=== PATIENT | female | born 1935 | race Caucasian/White ===

== ENCOUNTER 2021-05-27 18:01 | Inpatient (IN) | payer MEDICARE, SELFPAY ==
--- NOTE | ~2021-05-27 | XR_ITS ---
EXAMINATION: XR chest 1V portable Exam Date/Time: 05/27/2021 19:30 CDT CLINICAL HISTORY: Shortness of breath Comparison: None available. RESULT: Exam limited by significant rightward rotation. Lines, tubes, and devices: None. Lungs and pleura: Senescent changes.. Cardiomediastinal silhouette: Large hiatal hernia, otherwise unremarkable. Other: No acute osseous or upper abdominal finding. Severe diffuse osteopenia. IMPRESSION: No acute cardiopulmonary process Reviewed, dictated and finalized at location K.
[2021-05-27 18:09] VITALS: BP 107/81; PULSE 73; RESP 16; TEMP 36.4; O2SAT 100
--- NOTE | 2021-05-27 19:26 | ECG_ITS ---
Measurements Intervals [place] Rate: 56 P: 78 SD: 168 QRS: 7 QRSD: 87 T: 7 QT: 416 QTc: 404 Interpretive Statements SINUS BRADYCARDIA LOW QRS VOLTAGE IN PRECORDIAL LEADS [QRS DEFLECTION < 1.0 mV IN CHEST LEADS] ABNORMAL ECG NO PREVIOUS ECG AVAILABLE FOR COMPARISON Electronically Signed On 05-28-2021 15:44:20 CDT by Tim Rosa M.D.
--- NOTE | 2021-05-27 19:30 | ED.GENADULT ---
HPI - General Adult General Chief complaint: Recheck/Abnormal Lab/Rx Stated complaint: abnormal labs Time Seen by Provider: 05/27/21 19:15 Source: patient and family Mode of arrival: wheelchair Limitations: no limitations History of Present Illness HPI narrative: 85-year-old female presents to emergency room accompanied by her daughter. She comes in from assisted living facility. She has some outpatient labs which were drawn by her primary physician Dr. Radhames Molina who is part of [facility]. Laboratory results come back with a significant anemia with a hemoglobin 5.7 and hematocrit of 16.5. Also noted to have an elevation of her BUN to 47 with a creatinine 1.1. Patient denies any blood in her stool or any melanotic stools. Denies a history of GI bleed. She had no blood in her urine. She does have a small hemorrhoid which she states is Lately but no significant bleeding from that. She is been extremely weak lately. A couple times she has been so weak that she just have to let herself down to the floor she did not actually fall to the floor. Related Data Allergies Allergy/AdvReac Type Severity Reaction Status Date / Time codeine Allergy Unknown Unknown Verified 09/18/18 13:49 Review of Systems Review of Systems: CONSTITUTIONAL: Denies fever, chills, or sweats. Feeling weak and no energy EYES: Denies visual changes, redness, or discharge. ENT: Denies rhinorrhea, congestion, sore throat, or otalgia. CARDIOVASCULAR: Denies chest pain, palpitations, or edema. RESPIRATORY: Denies cough or dyspnea. GASTROINTESTINAL: Denies abdominal pain, nausea, vomiting, or diarrhea. GENITOURINARY: Denies dysuria or hematuria. SKIN: Denies rash or itching. MUSCULOSKELETAL: Denies back pain, joint pain, or myalgia. NEUROLOGIC: Denies headache, numbness, or weakness. PSYCHIATRIC: Denies anxiety or depression. [facility] Past Medical History Medical History (Updated 05/27/21 @ 21:18 by Ayaz Garay DO) Parkinson's disease Exam Narrative: APPEARANCE: Well appearing, no pain or distress, well-nourished. Patient is extremely pale Head normocephalic and atraumatic. EYES: PERRLA/EOMI, conjunctivae very clear. NOSE: Normal with no drainage EARS:TMS clear Caryn Wright, with good light reflex. THROAT: Pharynx clear, no exudate. NECK: Supple. No adenopathy, no masses. RESPIRATORY: Airway patent, respirations nonlabored. Clear to auscultation bilaterally, no rales, rhonchi, wheezing. CARDIOVASCULAR: Regular rate and rhythm without murmurs, rubs, or gallops. ABDOMINAL: Soft, nontender, nondistended, no hepatosplenomegaly Musculoskeletal: Moves all extremities. Strength/ROM intact, No edema, No calf tenderness. NEURO: Alert. Cranial nerves II through XII intact. Normal gait. Good coordination. Nonfocal examination. SKIN:: Warm, dry. Normal Color PSYCHIATRIC: Normal affect/mood, normal interaction Rectal: There was no stool in the rectal vault. There was no blood noted on the glove. Hemoccult negative on the mucus that I was able to get on the glove. Course Vital Signs Vital signs: Vital Signs Temperature 97.6 F 05/27/21 18:09 Pulse Rate 73 05/27/21 18:09 Respiratory Rate 16 05/27/21 18:09 Blood Pressure 107/81 05/27/21 18:09 Pulse Oximetry 100 05/27/21 18:09 Temperature 97.6 F 05/27/21 18:09 Pulse Rate 63 05/27/21 20:23 Respiratory Rate 20 05/27/21 20:23 Blood Pressure 116/45 L 05/27/21 20:23 Pulse Oximetry 100 05/27/21 20:23 Medical Decision Making MDM Narrative Medical decision making narrative: Patient noted to be severely anemic with hemoglobin 6.0. Rectal examination was nothing in the vault and the mucus was Hemoccult negative. Patient was transfused with blood in the emergency department. Vital Signs Vital Signs: Vital Signs Temperature 97.6 F 05/27/21 18:09 Pulse Rate 73 05/27/21 18:09 Respiratory Rate 16 05/27/21 18:09 Blood Pressure 107/81 05/27/21 18:09 Pulse Oximetry 10
[2021-05-27 20:21] VITALS: RESP 20
[2021-05-27 20:22] LABS: Basophils Percent Auto 0.5 % (0.2-1.2); Eosinophils Absolute Auto 0.3 K/mm3 (0-0.3); Immature Granulocyte Absolute 0.05 K/mm3 (0.00-0.031); Immature Granulocyte Percent A 0.6 % (0-0.5); Lymphocytes Absolute Auto 1.48 K/mm3 (0.9-3.2); Lymphocytes Percent Auto 17.6 % (18.3-44.2); Mean Corpuscular HGB Conc 31.6 g/dl (32-36); Mean Corpuscular Volume 104.4 fl (80-100); Mean Platelet Volume 10.5 fl (7.4-10.4); Monocytes Absolute Auto 0.9 K/mm3 (0.1-0.6); Monocytes Percent Auto 10.4 % (2.6-8.5); Neutrophils Absolute Auto 5.7 K/mm3 (1.3-6.7); Neutrophils Percent Auto 67.9 % (45.5-73.1); Platelet Count Result 258 k/mm3 (150-375); Red Blood Count 1.82 M/mm3 (4.2-5.4); Red Cell Distribution Width 15.1 % (11.5-14.5); White Blood Count 8.4 K/mm3 (4.5-10.0)
[2021-05-27 20:23] VITALS: BP 116/45; PULSE 63; RESP 20; O2SAT 100
[2021-05-27 20:31] LABS: Alanine Aminotransferase 6 U/L (4-35); Albumin Level 3.4 g/dL (3.5-5.1); Alkaline Phosphatase 39 U/L (38-126); Anion Gap 5 mmol/L (8-16); Aspartate Amino Transferase 28 U/L (14-36); Bilirubin,Total 0.4 mg/dL (0.2-1.3); Blood Urea Nitrogen 42 mg/dL (7-17); Calcium 9.1 mg/dL (8.4-10.2); Carbon Dioxide 25 mmol/L (22-30); Chloride 106 mmol/L (98-107); Estimated Glomerular Filt Rate 53; Glucose 104 mg/dL (65-110); Potassium 4.1 mmol/L (3.4-5.0); Sodium 136 mmol/L (137-145)
[2021-05-27 20:34] LABS: INR 1.3; Prothrombin Time 15.5 Seconds (11.1-14.7)
[2021-05-27 20:35] LABS: Partial Thromboplastin Time 25.3 SECONDS (22.3-36.8)
--- NOTE | 2021-05-27 21:50 | PC.NURSE ---
Unable to parts picker PRBC from blood bank. Blood type confirmation needed before it could be released.
[2021-05-27 21:58] VITALS: BP 127/48; PULSE 62; RESP 17; O2SAT 99
[2021-05-27] MEDS: SODIUM CHLORIDE 0.9% IV 250 ML 30 ML IV CONT (22:11)
[2021-05-27 22:34] VITALS: BP 125/45; PULSE 60; RESP 18; O2SAT 98
--- NOTE | 2021-05-27 22:36 | PC.NURSE ---
Consent for Blood Transfusion obtained and placed in patients chart. Copy of LG PW placed with patients chart.
[2021-05-27 23:27] VITALS: BMI 24.2
[2021-05-27 23:36] VITALS: BP 104/47; PULSE 59; RESP 16; TEMP 36.9; O2SAT 95
--- NOTE | 2021-05-27 23:38 | ADMGEN ---
This patient, Inge Estevez, was admitted to 3 Med Surg Room 312-01 at 2315. Patient/family oriented to hospital policies and general routines including ID bracelet, bed and alarms, visiting hours, pain management, procedures, bathroom and other care routines, personal items, smoking policy, room service/diet, and visiting hours. Information on how to activate the Rapid Response Team has been discussed. Patient/Family are encouraged to report perceived risks to care and to ask questions if they do not understand what they are told or what they should do.
[2021-05-28] VITALS (11 sets, daily range): BP systolic 104–122; BP diastolic 44–77; PULSE 55–71; RESP 16–18; TEMP 36.1–36.9; O2SAT 96–100
--- NOTE | 2021-05-28 00:35 | PM.IMHP ---
H&P: HPI History of Present Illness Date/Time: 05/28/21 00:35 Chief Complaint: Low hemoglobin. Narrative: This is an 85-year-old female with past medical history significant for Parkinson's disease, atrial fibrillation, hypertension, gastroesophageal reflux disease. Patient lives at assisted living facility. She is brought in for evaluation after lab work at her primary care physician's office showed a hemoglobin 6 hematocrit of 19 MCV 104. Patient denies any coffee-ground emesis or melena or bright red blood per rectum or hematemesis. She has been in her usual state of health. Patient denies any nausea vomiting abdominal pain, weight loss, no poor appetite, no early satiety, no changes in his to character. Decision has been made to admit the patient for further evaluation management and treatment. Review of Systems Review of Systems: Low hemoglobin, abnormal lab results. Constitutional: Constitutional: Denies chills, Reports fatigue, Denies fever(s), Reports lethargy, Denies malaise, Denies night sweats and Denies weakness Eyes: Eyes: Denies change in vision ENT: Denies dysphagia and Denies odynophagia Cardiovascular: Cardiovascular: Denies chest pain, Denies pedal edema, Denies leg edema, Denies radiating jaw, neck or arm pain and Denies palpitations Respiratory: Respiratory: Denies cough and Denies excessive phlegm production Gastrointestinal: Gastrointestinal: Denies abdominal pain, Denies melena, Denies hematochezia, Denies change in bowel habits, Denies coffee ground emesis, Denies dyspepsia, Denies heartburn, Denies nausea and Denies vomiting Genitourinary: Genitourinary: Denies dysuria Musculoskeletal: Musculoskeletal: Denies back pain, Denies arthralgias, Denies joint swelling and Denies muscle weakness Integumentary/Breasts: Skin/Breast: Denies rash Neurologic: Denies focal weakness and Denies Sensory deficit (Neuro) Psychiatric: Psychiatric: Reports no additional psychiatric complaints and Reports as per HPI Endocrine: Endocrine: Denies cold intolerance, Denies heat intolerance, Denies polyphagia, Denies polydipsia and Denies palpitations Hematologic/Lymphatic: Hematologic/Lymphatic: Reports no additional hematologic/lymphatic complaints and Reports as per HPI Allergic/Immunologic: Allergic/Immunologic: Reports no additional allergic/immunologic complaints and Reports as per HPI [facility] Past Medical History Medical History (Updated 05/27/21 @ 21:18 by Ayaz Garay DO) Parkinson's disease Family History Family History (Updated 05/27/21 @ 23:44 by Carole Helm RN) Mother CAD (coronary artery disease) Sibling Diabetes mellitus Social History Social History Smoking status: Never smoker Alcohol intake: former Substance use: never Spiritual care concerns: No Meds Home Medications and Allergies Home Medications Medication Instructions Recorded Confirmed Type carbidopa-levodopa 2 tablet PO QID 05/27/21 05/27/21 History mirabegron [Myrbetriq] 25 mg PO DAILY 05/27/21 05/28/21 History nadolol 80 mg PO DAILY 05/28/21 05/28/21 History nitrofurantoin macrocrystal 50 mg PO DAILY 05/28/21 05/28/21 History nystatin [Nystop] 1 applic TOPICAL TID 05/28/21 05/28/21 History omeprazole 20 mg PO DAILY 05/28/21 05/28/21 History triamterene-hydrochlorothiazid 1 cap PO DAILY 05/28/21 05/28/21 History Allergies Allergy/AdvReac Type Severity Reaction Status Date / Time codeine Allergy Unknown Unknown Verified 05/27/21 22:43 Vital Signs Vital Signs - 24 hr 05/27/21 18:09 05/27/21 20:21 05/27/21 20:23 Temperature 97.6 F Pulse Rate 73 63 Respiratory Rate 16 20 20 Blood Pressure 107/81 116/45 L Pulse Oximetry 100 100 05/27/21 21:58 05/27/21 22:34 Temperature Pulse Rate 62 60 Respiratory Rate 17 18 Blood Pressure 127/48 L 125/45 L Pulse Oximetry 99 98 Exam Narrative: Patient is laying in a stretcher. Const:
[2021-05-28] MEDS: SODIUM CHLORIDE 0.9% IV 250 ML 30 ML (00:55)
[2021-05-28 04:21] LABS: Appearance Urine Cloudy (Clear); Bilirubin Urine Negative (Negative); Blood Urine Negative (Negative); Color Urine Yellow (Yellow); Glucose Urine UA Negative (Negative); Ketones Urine Negative (Negative); Leukocyte Esterase Ur Trace LEU/UL (Negative); Nitrate Urine Negative (Negative); Protein Urine Negative (Negative); Urobilinogen Urine 0.2 mg/dL (<2.0); pH Urine 5.5 (5.0-9.0)
[2021-05-28 04:27] LABS: Bacteria Urine 1+ /hpf; Mucus Urine Rare /lpf; RBC Urine 0-2 /hpf (0-2); Squamous Epithelial Cell Urine Rare /hpf (Few)
[2021-05-28 04:31] LABS: Add Urine Microscopic? YES
[2021-05-28] MEDS: TUBING, BLOOD PLUM PUMP TUBING 1 EACH XX (04:46)
--- NOTE | 2021-05-28 07:42 | PM.IMPN ---
Progress Note: A&P Assessment and Plan (1) Anemia: Qualifiers: Anemia type: unspecified type Qualified Code(s): D64.9 - Anemia, unspecified Code(s): D64.9 - Anemia, unspecified Status: Acute Assessment and Plan: Guaiac negative, repeat. GI consult Transfuse as needed admitted with a hemoglobin of 6.0, she was given 1 unit of blood, repeat CBC showed 7.6 hemoglobin with a 23.2 hematocrit. vital signs are currently stable, she does become dyspneic with any amount of exertion or activity. She is mostly bed ridden, but with meals and repositioning does appear to be huffing and puffing per family report. GI physician Dr. Stein saw the patient this morning, occult stool ordered as well as other blood work. GI physician advised to keep the hemoglobin greater than 9. Ordered another unit of RBCs this afternoon. Repeating CBC and CMP in the morning. Added iron panel and folic study in the morning. GI not recommending any invasive diagnostic procedures or studies or colonoscopy or EGD at this time. (2) Generalized weakness: Code(s): R53.1 - Weakness Status: Acute Assessment and Plan: Likely secondary to low hemoglobin and chronic deconditioning Ordered dietary supplements Supportive care PT and OT has been ordered. Patient is on a heart healthy diet. Ordered 20 mEq PO of potassium for potassium of 3.5. Checking iron panel and folic level Need to treat iron if low, with Venofer and/or p.o. iron supplements daily (3) Parkinson's disease: Code(s): G20 - Parkinson's disease Status: Acute Assessment and Plan: Continue PT/OT Continue Sinemet and other home meds On room air Continue to monitor (4) Urinary retention: Code(s): R33.9 - Retention of urine, unspecified Status: Acute Assessment and Plan: Acute new this shift, 05/28/21 She did not come from facility with a Dick catheter, but does take oxybutynin daily/macrobid daily and has chronic UTIs per daughter report. Her PCP treats her chronic UTIs and her chronic urinary retention. She is having difficulty with urinary retention, had a straight cath at admission to get the UA. urinalysis showed cloudy, trace leukocyte esterase, WBC 4-6, 1+ bacteria; urine culture is pending currently needing a bladder scan for possible urinary retention. Bladder scan ordered p.r.n. Dick to be placed if retaining 300 mL or more of urine. strict I/Os. WBC 8.0, no fevers or chills Subjective Date/time seen: 05/28/21 07:42 Patient was admitted with a hemoglobin of 6.0, she was given 1 unit of blood, and a repeat CBC showed 7.6 hemoglobin with a 23.2 hematocrit. While her vital signs are currently stable, she does become dyspneic with any amount of exertion or activity. She is mostly bed ridden, but with meals and repositioning does appear to be huffing and puffing per family report. She is having difficulty with urinary retention, had a straight cath at admission; urinalysis showed cloudy, trace leukocyte esterase, WBC 4-6, 1+ bacteria; urine culture is pending, and is currently needing a bladder scan for possible urinary retention. Bladder scan ordered p.r.n. and Dick to be placed if retaining 300 mL or more of urine. PT and OT has been ordered. Patient is on a heart healthy diet. Ordered 20 mEq PO of potassium for potassium of 3.5. GI physician Dr. Stein saw the patient this morning, occult stool ordered as well as other blood work. GI physician advised to keep the hemoglobin greater than 9. Ordered another unit of RBCs this afternoon. Repeating CBC and CMP in the morning. Added iron panel and folic study in the morning. Not recommending any invasive diagnostic procedures or studies or colonoscopy or EGD at this time. Her daughter is at bedside and I spoke with her at length. Review of Systems Review of Systems: All systems reviewed & are unremarkable except as noted in HPI and below Constitu
[2021-05-28] MEDS: nadoloL 20 MG TABLET 80 MG PO (08:06)
[2021-05-28] MEDS: NITROFURANTOIN MACROCRYSTALS 50 MG CAP PO (08:06)
[2021-05-28] MEDS: PANTOPRAZOLE 40 MG TABLET PO (08:06)
[2021-05-28] MEDS: CARBIDOPA/LEVODOPA 25/100 MG TABLET 2 TABLET PO ×4 (08:07→20:28)
[2021-05-28] MEDS: MIRABEGRON 25 MG ER TABLET PO (08:07)
[2021-05-28 08:34] LABS: Hematocrit 23.2 % (37.0-47.0); Hemoglobin 7.6 g/dL (12.0-15.0); Mean Corpuscular HGB Conc 32.8 g/dl (32-36); Mean Corpuscular Hemoglobin 32.3 pg (26-34); Mean Corpuscular Volume 98.7 fl (80-100); Mean Platelet Volume 10.3 fl (7.4-10.4); Platelet Count Result 251 k/mm3 (150-375); Red Blood Count 2.35 M/mm3 (4.2-5.4); Red Cell Distribution Width 16.4 % (11.5-14.5)
--- NOTE | 2021-05-28 08:43 | WPDGICN ---
Assessment and Plan Assessment and plan (1) Anemia: Qualifiers: Anemia type: unspecified type Qualified Code(s): D64.9 - Anemia, unspecified Code(s): D64.9 - Anemia, unspecified Status: Acute Assessment and Plan: Patient found to have significant macrocytic anemia in the emergency room. No history of GI bleeding is encountered. No specific abdominal complaints are described. Stools confirmed to be Hemoccult negative in the emergency room. Plan is to initially evaluate patient with folate B12 levels. LFTs were normal. Stool Hemoccult will be repeated to be thorough. Invasive GI testing would be stressful for this elderly, frail patient. At this time I would elect to transfuse her and only pursue invasive testing should her general condition improve adequately to tolerate this. We will follow hemoglobin with you. Folate and B12 level should be obtained.( these results may be tainted by recent transfusion). Review of old records revealed baseline hemoglobin of approximately 9, suggesting that patient may have a component of chronic anemia. We may wish to obtain hematology evaluation as well. (2) Parkinson's disease: Code(s): G20 - Parkinson's disease Status: Acute GI Consult Note Consult date/time: 05/28/21 08:43 HPI: Inge Estevez is a 85 year old female Seen in evaluation at the request of the hospitalist service. Patient is very frail. Currently resident of a shelter. Suffers with Parkinson's disease. She has been treated for atrial fibrillation hypertension and GE reflux. Patient apparently had routine labs performed which revealed her to have a low hemoglobin. Patient denies any obvious bleeding. She has had no bruising. She denies abdominal pain. Her appetite has been satisfactory. She does report weakness in general. Family history is noncontributory. Patient presented to the emergency room was admitted for blood transfusion went anemia was identified. In the emergency room stool was described as being Hemoccult negative in brown in appearance. She is not on anticoagulation. Review of Systems Review of Systems: All systems reviewed & are unremarkable except as noted in HPI and below PMFSH Past Medical History Medical History (Updated 05/27/21 @ 21:18 by Ayaz Garay DO) Parkinson's disease Family History Family History (Updated 05/27/21 @ 23:44 by Carole Helm RN) Mother CAD (coronary artery disease) Sibling Diabetes mellitus Social History Social History Smoking status: Never smoker Alcohol intake: former Substance use: never Spiritual care concerns: No Meds Home Medications and Allergies Home Medications Medication Instructions Recorded Confirmed Type carbidopa-levodopa 2 tablet PO QID 05/27/21 05/27/21 History mirabegron [Myrbetriq] 25 mg PO DAILY 05/27/21 05/28/21 History nadolol 80 mg PO DAILY 05/28/21 05/28/21 History nitrofurantoin macrocrystal 50 mg PO DAILY 05/28/21 05/28/21 History nystatin [Nystop] 1 applic TOPICAL TID 05/28/21 05/28/21 History omeprazole 20 mg PO DAILY 05/28/21 05/28/21 History triamterene-hydrochlorothiazid 1 cap PO DAILY 05/28/21 05/28/21 History Allergies Allergy/AdvReac Type Severity Reaction Status Date / Time codeine Allergy Unknown Unknown Verified 05/27/21 22:43 Vital Signs Vital Signs - 24 hr 05/27/21 18:09 05/27/21 20:21 05/27/21 20:23 Temperature 97.6 F Pulse Rate 73 63 Respiratory Rate 16 20 20 Blood Pressure 107/81 116/45 L Pulse Oximetry 100 100 05/27/21 21:58 05/27/21 22:34 05/28/21 00:52 Temperature 98.5 F Pulse Rate 62 60 61 Respiratory Rate 17 18 16 Blood Pressure 127/48 L 125/45 L 122/44 L Pulse Oximetry 99 98 97 05/28/21 01:10 05/28/21 02:10 05/28/21 03:10 Temperature 98.3 F 97.3 F L 97 F L Pulse Rate 55 L 57 L 56 L Respiratory Rate 16 16 18 Blood Pressure 112/47 L 115/49
[2021-05-28 08:45] LABS: Alanine Aminotransferase 7 U/L (4-35); Alkaline Phosphatase 35 U/L (38-126); Anion Gap 4 mmol/L (8-16); Aspartate Amino Transferase 23 U/L (14-36); Bilirubin,Total 0.4 mg/dL (0.2-1.3); Blood Urea Nitrogen 35 mg/dL (7-17); Calcium 8.4 mg/dL (8.4-10.2); Carbon Dioxide 25 mmol/L (22-30); Chloride 109 mmol/L (98-107); Estimated CRCL calculation 34 ml/min; Estimated Glomerular Filt Rate 60; Glucose 91 mg/dL (65-110); Phosphorus 3.9 mg/dL (2.5-4.5); Potassium 3.5 mmol/L (3.4-5.0); Sodium 138 mmol/L (137-145)
[2021-05-28 09:01] LABS: Immature Reticulocyte Fraction 29.3 % (3.0-15.9); Reticulocyte Hemoglobin Conten 36.4 pg (28.2-35.7); Reticulocyte Percent 4.58 % (0.7-4.3); Reticulocytes Absolute 0.11 B/L (32.2-175.7)
[2021-05-28 11:06] LABS: Folic Acid > 20.0 ng/mL (2.76->20)
[2021-05-28] MEDS: POTASSIUM CHLORIDE 20 MEQ TABLET.ER PO (13:38)
[2021-05-29] VITALS (8 sets, daily range): BP systolic 98–137; BP diastolic 44–61; PULSE 56–68; RESP 16; TEMP 35.7–36.8; O2SAT 97–98; BMI 24.2
[2021-05-29] MEDS: SODIUM CHLORIDE 0.9% IV 250 ML 30 ML IV CONT (00:06)
[2021-05-29] MEDS: TUBING, BLOOD PLUM PUMP TUBING 1 EACH XX (00:06)
[2021-05-29 05:57] LABS: Basophils Percent Auto 0.6 % (0.2-1.2); Eosinophils Absolute Auto 0.2 K/mm3 (0-0.3); Eosinophils Percent Auto 3.1 % (0-4.4); Hematocrit 25.9 % (37.0-47.0); Hemoglobin 8.3 g/dL (12.0-15.0); Immature Granulocyte Absolute 0.03 K/mm3 (0.00-0.031); Immature Granulocyte Percent A 0.4 % (0-0.5); Lymphocytes Absolute Auto 1.25 K/mm3 (0.9-3.2); Lymphocytes Percent Auto 18.2 % (18.3-44.2); Mean Corpuscular Hemoglobin 31.7 pg (26-34); Mean Corpuscular Volume 98.9 fl (80-100); Mean Platelet Volume 10.2 fl (7.4-10.4); Monocytes Absolute Auto 0.8 K/mm3 (0.1-0.6); Monocytes Percent Auto 10.9 % (2.6-8.5); Neutrophils Absolute Auto 4.6 K/mm3 (1.3-6.7); Neutrophils Percent Auto 66.8 % (45.5-73.1); Platelet Count Result 220 k/mm3 (150-375); Red Blood Count 2.62 M/mm3 (4.2-5.4); Red Cell Distribution Width 16.9 % (11.5-14.5); White Blood Count 6.9 K/mm3 (4.5-10.0)
[2021-05-29 06:08] LABS: Albumin Level 2.9 g/dL (3.5-5.1); Alkaline Phosphatase 42 U/L (38-126); Anion Gap 3 mmol/L (8-16); Aspartate Amino Transferase 21 U/L (14-36); Bilirubin,Total 0.4 mg/dL (0.2-1.3); Blood Urea Nitrogen 25 mg/dL (7-17); Calcium 7.8 mg/dL (8.4-10.2); Carbon Dioxide 24 mmol/L (22-30); Chloride 109 mmol/L (98-107); Estimated CRCL calculation 34 ml/min; Estimated Glomerular Filt Rate 60; Glucose 92 mg/dL (65-110); Potassium 3.7 mmol/L (3.4-5.0); Sodium 136 mmol/L (137-145)
[2021-05-29 06:10] LABS: Alanine Aminotransferase < 6 U/L (4-35)
[2021-05-29 06:16] LABS: NT Pro B Type Natriuretic Pept 2440 pg/mL (5-100)
[2021-05-29 06:27] LABS: Iron 31 ug/dL (37-170)
[2021-05-29 06:36] LABS: Percent Iron Saturation 16 % (20-50)
[2021-05-29 07:14] LABS: Folic Acid > 20.0 ng/mL (2.76->20)
[2021-05-29] MEDS: CARBIDOPA/LEVODOPA 25/100 MG TABLET 2 TABLET PO ×4 (09:13→20:27)
[2021-05-29] MEDS: PANTOPRAZOLE 40 MG TABLET PO (09:14)
[2021-05-29] MEDS: NITROFURANTOIN MACROCRYSTALS 50 MG CAP PO (09:14)
[2021-05-29] MEDS: nadoloL 20 MG TABLET 80 MG PO (09:17)
--- NOTE | 2021-05-29 11:15 | PM.IMPN ---
Progress Note: A&P Assessment and Plan (1) Anemia: Qualifiers: Anemia type: unspecified type Qualified Code(s): D64.9 - Anemia, unspecified Code(s): D64.9 - Anemia, unspecified Status: Acute Assessment and Plan: Found to have hemoglobin of 5.7 and hematocrit of 16.5 on outpatient labs, therefore she was sent to the ED There is no evidence of GI bleeding. Hemoccult negative in ED. GI was consulted for further evaluation and has recommended to hold on invasive testing at this time as long as hemoglobin remains stable She received 2 units PRBC on 05/28/2021. Hemoglobin improved to 8.3 following transfusion. Will recheck this afternoon to ensure remaining stable and continue to monitor closely Iron panel which appears consistent with anemia of chronic disease. B12 and folate are within normal limits Documented that hemoglobin baseline is 9.0 Repeat stool occult blood test is pending, awaiting stool sample Reticulocyte count is low, concerning for bone marrow suppression. Consult to hematology. Appreciate further recommendations. (2) Generalized weakness: Code(s): R53.1 - Weakness Status: Acute Assessment and Plan: Likely secondary to anemia and chronic deconditioning Appreciate PT/OT eval Continue dietary supplements Continue with evaluation for anemia as above (3) Urinary retention: Code(s): R33.9 - Retention of urine, unspecified Status: Acute Assessment and Plan: New onset. Dick catheter initiated on 05/28/2021 Patient noted to have no urine output throughout the day on 05/28/2021 therefore Dick catheter was initiated Hold oxybutynin Plan for voiding trial in the next 1-2 days UA collected on 05/28 with trace leuk esterase. Urine culture is pending, though no signs/symptoms to suggest acute infection therefore will hold antibiotics while awaiting culture (4) Parkinson's disease: Code(s): G20 - Parkinson's disease Status: Acute Assessment and Plan: No acute issues Continue carbidopa-levodopa Subjective Date/time seen: 05/29/21 11:15 Interval history: Date of service: 05/29/2021 Inge Estevez is an 85-year-old female with a history of Parkinson's disease and urinary incontinence who is seen in follow-up for anemia. The patient tells me that several days ago she slipped while trying to get into her bed and fell onto her bottom. She said that she has been feeling persistently weaker. This prompted staff at her nursing facility to draw labs and she was found to have a low hemoglobin. She cannot recall what this was. She denies blood in her stool, stating her stools are the same brown color. She does have a hemorrhoid that bothers her every so often, she states she last notices about 2 weeks ago but has not noticed any bleeding when she has bowel movements or wipes. Denies hematemesis. No hemoptysis. No hematuria. She denies shortness of breath, palpitations, dizziness, or lightheadedness. Denies cough or chest pain. No dysuria. She states her last bowel movement was several days ago, however her states that she was informed she had a bowel movement yesterday. No bowel movement is documented. She does have some gas discomfort in her abdomen. No nausea or vomiting. She is tolerating her diet. She states her Dick catheter was placed in the ED because she was not able to urinate, though RN tells me this was initiated last night on the floor as she did not urinate for the entire shift. The patient was straight cathed in the ED and suspect this is what she was referring to. She states that she occasionally has issues with not being able to urinate when she needs to, but if she takes her time she can typically go. She states she gets around at her nursing facility using a wheelchair. She is able to transfer herself from the bed to the commode to the wheelchair. She tells me that she gets physical therapy 3 times a wee
[2021-05-29] MEDS: DOCUSATE SODIUM 100 MG CAPSULE PO ×2 (12:04→20:27)
[2021-05-29 12:21] LABS: Hematocrit 26.5 % (37.0-47.0)
--- NOTE | 2021-05-29 13:46 | PCCCNOTE ---
On 05/29/21, the student, [Kavya Henriquez], provided care and completed [facility] documentation on this patient. I have reviewed the student's documentation and agree with the findings.
[2021-05-29] MEDS: polyethylene glycoL 3350 17 GM POWD.PACK PO (13:47)
--- NOTE | 2021-05-29 14:33 | WPDGIPROGNO ---
Progress Note: A&P Assessment and Plan (1) Anemia: Qualifiers: Anemia type: unspecified type Qualified Code(s): D64.9 - Anemia, unspecified Code(s): D64.9 - Anemia, unspecified Status: Acute Assessment and Plan: anemia stable. Improved after transfusion. No obvious signs of GI blood loss. Patient in poor general health. Invasive testing such as endoscopy not indicated given heme-negative stool on high risk with General cor morbidities. Agree that it may be beneficial to get a hematology evaluation. Patient appears to have a relatively low hemoglobin baseline. (2) Parkinson's disease: Code(s): G20 - Parkinson's disease Status: Acute Subjective Date/time seen: 05/29/21 14:33 Patient alert but very frail. No signs of GI bleeding noted. Review of Systems Review of Systems: All systems reviewed & are unremarkable except as noted in HPI and below Exam Narrative: At abdomen is soft nontender with no organomegaly. Stool Hemoccult negative in the ER. Hemoglobin stable at this point Objective Data Vital Signs Vital Signs: Vital Signs - 24 hr 05/28/21 22:00 05/28/21 23:18 05/28/21 23:36 Temperature 98.0 F 98.3 F 98.3 F Pulse Rate 71 59 L 59 L Respiratory Rate 16 16 16 Blood Pressure 110/44 L 104/44 L 104/47 L Pulse Oximetry 97 96 96 05/29/21 00:36 05/29/21 01:44 05/29/21 05:52 Temperature 98.2 F 98.2 F 97.0 F L Pulse Rate 63 56 L 63 Respiratory Rate 16 16 16 Blood Pressure 108/48 L 104/44 L 104/44 L Pulse Oximetry 98 98 98 05/29/21 08:27 05/29/21 08:29 05/29/21 09:17 Temperature Pulse Rate 68 68 Respiratory Rate Blood Pressure 137/61 Pulse Oximetry 98 98 05/29/21 13:44 Temperature 96.2 F L Pulse Rate 68 Respiratory Rate 16 Blood Pressure 102/48 L Pulse Oximetry 98 Intake/Output Intake/Output: Intake & Output 05/26/21 05/27/21 05/28/21 05/29/21 23:59 23:59 23:59 23:59 Intake Total 1887 1140 Output Total 0 575 700 Balance 0 1312 440 Meds/Results Medications: Active Medications Generic Name Dose Route Start Last Admin Trade Name Ariesq PRN Reason Stop Dose Admin Carbidopa/Levodopa 2 tablet 05/28/21 08:00 05/29/21 12:04 Carbidopa/Levodopa 25/100 Mg Tablet PO 2 tablet WMHS NANI Administration Docusate Sodium 100 mg 05/29/21 11:13 05/29/21 12:04 Docusate Sodium 100 Mg Capsule PO 100 mg Q12HR NANI Administration Nadolol 80 mg 05/28/21 09:00 05/29/21 09:17 Nadolol 20 Mg Tablet PO 80 mg DAILY NANI Administration Nitrofurantoin Macrocrystals 50 mg 05/28/21 08:00 05/29/21 09:14 Nitrofurantoin Macrocrystals 50 Mg Cap PO 50 mg DAILY@0800 NANI Administration Oxybutynin Chloride 5 mg 05/29/21 09:00 05/29/21 09:14 Oxybutynin Chloride Xl 5 Mg Tab.Er.24 PO 5 mg DAILY NANI Administration Pantoprazole Sodium 40 mg 05/28/21 09:00 05/29/21 09:14 Pantoprazole 40 Mg Tablet PO 40 mg QAM NANI Administration Polyethylene Glycol 17 gm 05/29/21 11:13 05/29/21 13:47 Polyethylene Glycol 3350 17 Gm Powd.Pack PO 17 gm QAM PRN Administration Constipation Tolnaftate 1 applic 05/28/21 11:51 Tolnaftate 1% Powder 45 Gm Btl TOPICAL Q12HR PRN Rash Radiology Results: ITS Impressions Chest X-Ray 05/27/21 19:48 IMPRESSION: No acute cardiopulmonary process Labs Labs: Laboratory Results - last 24 hr 05/27/21 05/29/21 05/29/21 20:11 05:43 05:43 WBC 6.9 RBC 2.62 L Hgb 8.3 L Hct 25.9 L MCV 98.9 MCH 31.7 MCHC 32.0 RDW 16.9 H Plt Count 220 MPV 10.2 Immature Gran % (Auto) 0.4 Neut % (Auto) 66.8 Lymph % (Auto) 18.2 L Weston % (Auto) 10.9 H Eos % (Auto) 3.1 Baso % (Auto) 0.6 Lymph # (Auto) 1.25 Weston # (Auto) 0.8 H Eos # (Auto) 0.2 Baso # (Auto) 0.0 Abs Immat Gran (auto) 0.03 Absolute Neuts (auto) 4.6 Absolute Nucleated RBC 0.0 Nucleated RBC % 0.0 Sod[place]
[2021-05-29] MEDS: ACETAMINOPHEN 325 MG TABLET 650 MG PO (18:42)
[2021-05-29 19:22] LABS: IFOB Positive Control Positive; Immunochemical Fecal Occult Bl Negative (N)
[2021-05-30 05:59] VITALS: BP 120/57; PULSE 58; RESP 16; TEMP 36.1; O2SAT 96
[2021-05-30 06:21] LABS: Anion Gap 3 mmol/L (8-16); Blood Urea Nitrogen 20 mg/dL (7-17); Calcium 7.7 mg/dL (8.4-10.2); Carbon Dioxide 25 mmol/L (22-30); Chloride 108 mmol/L (98-107); Estimated CRCL calculation 34 ml/min; Estimated Glomerular Filt Rate 60; Glucose 87 mg/dL (65-110); Potassium 4.2 mmol/L (3.4-5.0); Sodium 136 mmol/L (137-145)
[2021-05-30 07:30] LABS: Hematocrit 26.1 % (37.0-47.0); Hemoglobin 8.4 g/dL (12.0-15.0); Mean Corpuscular HGB Conc 32.2 g/dl (32-36); Mean Corpuscular Hemoglobin 31.9 pg (26-34); Mean Corpuscular Volume 99.2 fl (80-100); Mean Platelet Volume 10.4 fl (7.4-10.4); Platelet Count Result 221 k/mm3 (150-375); Red Blood Count 2.63 M/mm3 (4.2-5.4); Red Cell Distribution Width 17.2 % (11.5-14.5); White Blood Count 6.4 K/mm3 (4.5-10.0)
[2021-05-30 08:37] VITALS: PULSE 60
[2021-05-30] MEDS: CARBIDOPA/LEVODOPA 25/100 MG TABLET 2 TABLET PO ×4 (08:37→20:45)
[2021-05-30] MEDS: nadoloL 20 MG TABLET 80 MG PO (08:37)
[2021-05-30] MEDS: DOCUSATE SODIUM 100 MG CAPSULE PO ×2 (08:38→20:45)
[2021-05-30] MEDS: PANTOPRAZOLE 40 MG TABLET PO (08:38)
[2021-05-30] MEDS: NITROFURANTOIN MACROCRYSTALS 50 MG CAP PO (08:38)
--- NOTE | 2021-05-30 09:38 | WPDGIPROGNO ---
Progress Note: A&P Assessment and Plan (1) Anemia: Qualifiers: Anemia type: unspecified type Qualified Code(s): D64.9 - Anemia, unspecified Code(s): D64.9 - Anemia, unspecified Status: Acute Assessment and Plan: Patient with stable anemia. No obvious signs of GI bleeding. Stool Hemoccult negative. Patient has underlying medical problems including Parkinson's disease. His very weak and frail and not a good candidate for screening a colonoscopy. Agree with considering Hematology evaluation. No additional GI workup anticipated at this time. (2) Parkinson's disease: Code(s): G20 - Parkinson's disease Status: Acute Subjective Date/time seen: 05/30/21 09:38 Pain patient remains comfortable at rest. No signs of GI bleeding. Stool Hemoccult negative. Hemoglobin stable. She has received transfusion since admission the hospital. Review of Systems Review of Systems: All systems reviewed & are unremarkable except as noted in HPI and below Exam Narrative: Physical exam reveals patient be alert comfortable at rest. Vital signs stable. She is very weak and frail in appearance. Lungs are clear. Abdomen is soft nontender. Objective Data Vital Signs Vital Signs: Vital Signs - 24 hr 05/29/21 13:44 05/29/21 21:45 05/30/21 05:59 Temperature 96.2 F L 97.0 F L 96.9 F L Pulse Rate 68 66 58 L Respiratory Rate 16 16 16 Blood Pressure 102/48 L 98/56 L 120/57 L Pulse Oximetry 98 97 96 05/30/21 08:37 Temperature Pulse Rate 60 Respiratory Rate Blood Pressure Pulse Oximetry Intake/Output Intake/Output: Intake & Output 05/27/21 05/28/21 05/29/21 05/30/21 23:59 23:59 23:59 23:59 Intake Total 1887 1840 500 Output Total 0 575 850 500 Balance 0 1312 990 0 Meds/Results Medications: Active Medications Generic Name Dose Route Start Last Admin Trade Name Freq PRN Reason Stop Dose Admin Acetaminophen 650 mg 05/29/21 18:29 05/29/21 18:42 Acetaminophen 325 Mg Tablet PO 650 mg Q6H PRN Administration Mild Pain (1-3) Carbidopa/Levodopa 2 tablet 05/28/21 08:00 05/30/21 08:37 Carbidopa/Levodopa 25/100 Mg Tablet PO 2 tablet WMHS NANI Administration Docusate Sodium 100 mg 05/29/21 11:13 05/30/21 08:38 Docusate Sodium 100 Mg Capsule PO 100 mg Q12HR NANI Administration Nadolol 80 mg 05/28/21 09:00 05/30/21 08:37 Nadolol 20 Mg Tablet PO 80 mg DAILY NANI Administration Nitrofurantoin Macrocrystals 50 mg 05/28/21 08:00 05/30/21 08:38 Nitrofurantoin Macrocrystals 50 Mg Cap PO 50 mg DAILY@0800 NANI Administration Oxybutynin Chloride 5 mg 05/29/21 09:00 05/29/21 09:14 Oxybutynin Chloride Xl 5 Mg Tab.Er.24 PO 5 mg DAILY NANI Administration Pantoprazole Sodium 40 mg 05/28/21 09:00 05/30/21 08:38 Pantoprazole 40 Mg Tablet PO 40 mg QAM NANI Administration Polyethylene Glycol 17 gm 05/29/21 11:13 05/29/21 13:47 Polyethylene Glycol 3350 17 Gm Powd.Pack PO 17 gm QAM PRN Administration Constipation Tolnaftate 1 applic 05/28/21 11:51 Tolnaftate 1% Powder 45 Gm Btl TOPICAL Q12HR PRN Rash Radiology Results: ITS Impressions Chest X-Ray 05/27/21 19:48 IMPRESSION: No acute cardiopulmonary process Labs Labs: Laboratory Results - last 24 hr 05/29/21 05/29/21 05/30/21 12:12 17:20 05:50 WBC 6.4 RBC 2.63 L Hgb 9.0 L 8.4 L Hct 26.5 L 26.1 L MCV 99.2 MCH 31.9 MCHC 32.2 RDW 17.2 H Plt Count 221 MPV 10.4 Sodium Potassium Chloride Carbon Dioxide Anion Gap BUN Creatinine Estim Creat Clear Calc Estimated GFR Glucose Calcium Stl Occult Blood (IFOB) Negative 05/30/21 05:50 WBC RBC Hgb Hct MCV MCH MCHC RDW Plt Count MPV Sodium 136 L Potassium 4.2 Chloride 108 H Carbon Dioxide 25 Anion Gap 3 L BUN 20 H Creatinine 0.90 Estim Creat Clear Calc 34 E
[2021-05-30 13:23] VITALS: BP 129/58; PULSE 68; RESP 16; TEMP 36.1; O2SAT 100
--- NOTE | 2021-05-30 13:51 | P.PNIM_ITS ---
Progress Note: A&P Assessment and Plan (1) Anemia: Qualifiers: Anemia type: unspecified type Qualified Code(s): D64.9 - Anemia, unspecified <Yumiko Jara PA-C - Last Filed: 05/30/21 14:05> Code(s): D64.9 - Anemia, unspecified <Yumiko Jara PA-C - Last Filed: 05/30/21 14:05> Status: Acute <Yumiko Jara PA-C - Last Filed: 05/30/21 14:05> Assessment and Plan: Found to have hemoglobin of 5.7 and hematocrit of 16.5 on outpatient labs, therefore she was sent to the ED * There is no evidence of GI bleeding. Hemoccult negative in ED. GI was consulted for further evaluation and has recommended to hold on invasive testing at this time as long as hemoglobin remains stable * She received 2 units pRBC on 05/28/2021. Hemoglobin stabilized following transfusion. Remaining stable 8.5-9.0 * Iron panel reviewed which appears consistent with anemia of chronic disease. B12 and folate are within normal limits * Hemoglobin baseline is 9.0 * Repeat stool occult blood test collected on 05/29/2021 also negative * Reticulocyte count is low, concerning for bone marrow suppression. Discussed case with director child Dr. Ortiz. Bone marrow biopsy recommended although patient declined testing. Current plan is to follow with serial CBC weekly with outpatient PCP follow-up. She will be provided a referral to Dr. Ortiz on discharge. Patient and daughter comfortable with this plan <Yumiko Jara PA-C - Last Filed: 05/30/21 14:05> (2) Generalized weakness: Code(s): R53.1 - Weakness <Yumiko Jara PA-C - Last Filed: 05/30/21 14:05> Status: Acute <Yumiko Jara PA-C - Last Filed: 05/30/21 14:05> Assessment and Plan: Likely secondary to anemia and chronic deconditioning * Appreciate PT/OT eval * Continue dietary supplements * Planning for rehab on discharge. Awaiting insurance authorization for [place] <Yumiko Jara PA-C - Last Filed: 05/30/21 14:05> (3) Urinary retention: Code(s): R33.9 - Retention of urine, unspecified <SIRI ContehC - Last Filed: 05/30/21 14:05> Status: Acute <SIRI ContehC - Last Filed: 05/30/21 14:05> Assessment and Plan: New onset. * Patient noted to have no urine output throughout the day on 05/28/2021 therefore Dick catheter was initiated * Hold oxybutynin * Dick catheter removed this morning. Proceed with voiding trial. Encourage PO fluid intake. * Flomax not started due to BP hovering on low end and predisposition to orthostatic hypotension given Parkinsons * Urine culture negative. <Yumiko Jara PA-C - Last Filed: 05/30/21 14:05> (4) Parkinson's disease: Code(s): G20 - Parkinson's disease <SIRI ContehC - Last Filed: 05/30/21 14:05> Status: Acute <SIRI ContehC - Last Filed: 05/30/21 14:05> Assessment and Plan: No acute issues * Continue carbidopa-levodopa <SIRI ContehC - Last Filed: 05/30/21 14:05> Subjective Date/time seen: 05/30/21 13:51 <SIRI ContehC - Last Filed: 05/30/21 14:05> Interval history: Date of service: 05/30/2021 Inge Estevez is an 85-year-old female with a history of Parkinson's disease and urinary incontinence who is seen in follow-up for anemia. Well today she feels she is getting a bit stronger. She able to get around with assistance using her walker. She denies dizziness, lightheadedness, or palpitations. No shortness of breath, cough, chest pain. She denies
--- NOTE | 2021-05-30 13:51 | PM.IMPN ---
Progress Note: A&P Assessment and Plan (1) Anemia: Qualifiers: Anemia type: unspecified type Qualified Code(s): D64.9 - Anemia, unspecified <Yumiko ZohrehSIRI BillsC - Last Filed: 05/30/21 14:05> Code(s): D64.9 - Anemia, unspecified <Yumiko BrunerCAROLINA Bills-C - Last Filed: 05/30/21 14:05> Status: Acute <Yumiko ZohrehCAROLINA Bills-C - Last Filed: 05/30/21 14:05> Assessment and Plan: Found to have hemoglobin of 5.7 and hematocrit of 16.5 on outpatient labs, therefore she was sent to the ED There is no evidence of GI bleeding. Hemoccult negative in ED. GI was consulted for further evaluation and has recommended to hold on invasive testing at this time as long as hemoglobin remains stable She received 2 units pRBC on 05/28/2021. Hemoglobin stabilized following transfusion. Remaining stable 8.5-9.0 Iron panel reviewed which appears consistent with anemia of chronic disease. B12 and folate are within normal limits Hemoglobin baseline is 9.0 Repeat stool occult blood test collected on 05/29/2021 also negative Reticulocyte count is low, concerning for bone marrow suppression. Discussed case with cement sprayer helper Dr. Ortiz. Bone marrow biopsy recommended although patient declined testing. Current plan is to follow with serial CBC weekly with outpatient PCP follow-up. She will be provided a referral to Dr. Ortiz on discharge. Patient and daughter comfortable with this plan <Yumiko Jara PA-C - Last Filed: 05/30/21 14:05> (2) Generalized weakness: Code(s): R53.1 - Weakness <CAROLINA Conteh-C - Last Filed: 05/30/21 14:05> Status: Acute <SIRI ContehC - Last Filed: 05/30/21 14:05> Assessment and Plan: Likely secondary to anemia and chronic deconditioning Appreciate PT/OT eval Continue dietary supplements Planning for rehab on discharge. Awaiting insurance authorization for [place] <Yumiko Jara PA-C - Last Filed: 05/30/21 14:05> (3) Urinary retention: Code(s): R33.9 - Retention of urine, unspecified <Yumiko Christiano Jara PA-C - Last Filed: 05/30/21 14:05> Status: Acute <Yumiko Alvarado Marek PA-C - Last Filed: 05/30/21 14:05> Assessment and Plan: New onset. Patient noted to have no urine output throughout the day on 05/28/2021 therefore Dick catheter was initiated Hold oxybutynin Dick catheter removed this morning. Proceed with voiding trial. Encourage PO fluid intake. Flomax not started due to BP hovering on low end and predisposition to orthostatic hypotension given Parkinsons Urine culture negative. <Yumiko Jara PA-C - Last Filed: 05/30/21 14:05> (4) Parkinson's disease: Code(s): G20 - Parkinson's disease <Yumiko Jara PA-C - Last Filed: 05/30/21 14:05> Status: Acute <CAROILNA Conteh-C - Last Filed: 05/30/21 14:05> Assessment and Plan: No acute issues Continue carbidopa-levodopa <Yumiko BrunerNida Jara PA-C - Last Filed: 05/30/21 14:05> Subjective Date/time seen: 05/30/21 13:51 <Yumiko Jara PA-C - Last Filed: 05/30/21 14:05> Interval history: Date of service: 05/30/2021 Inge Estevez is an 85-year-old female with a history of Parkinson's disease and urinary incontinence who is seen in follow-up for anemia. Well today she feels she is getting a bit stronger. She able to get around with assistance using her walker. She denies dizziness, lightheadedness, or palpitations. No shortness of breath, cough, chest pain. She denies nausea or vomiting. Her appetite is good. She had a bowel movement today. No episodes of blood in stool. She had her Dick catheter removed this morning and has not been able to urinate yet. She is trying to drink plenty of water. She did get on the bedpan earlier but did not urinate. She feels that if she gets up to the commode she might have better luck with
--- NOTE | 2021-05-30 16:15 | PCCCNOTE ---
On 05/30/21, the student, [Kavya Espinoza], provided care and completed [facility] documentation on this patient. I have reviewed the student's documentation and agree with the findings.
[2021-05-30 20:10] VITALS: O2SAT 95
[2021-05-30 22:00] VITALS: BP 131/56; PULSE 70; RESP 18; TEMP 36.2; O2SAT 98
[2021-05-30 23:41] LABS: Add Urine Microscopic? YES; Appearance Urine Clear (Clear); Bilirubin Urine Negative (Negative); Blood Urine Negative (Negative); Color Urine Yellow (Yellow); Glucose Urine UA Negative (Negative); Ketones Urine Negative (Negative); Leukocyte Esterase Ur 2+ LEU/UL (NEGATIVE); Nitrate Urine Negative (Negative); Protein Urine Negative (Negative); Specific Grav Ur 1.015 (1.001-1.035); Urobilinogen Urine 0.2 mg/dL (<2.0)
[2021-05-30 23:44] LABS: Bacteria Urine Trace /hpf; RBC Urine 0-2 /hpf (0-2); Squamous Epithelial Cell Urine Occasional /hpf (Few)
[2021-05-31 06:00] VITALS: BP 119/51; PULSE 62; RESP 18; TEMP 36.6; O2SAT 98
[2021-05-31 06:21] LABS: Hematocrit 25.1 % (37.0-47.0); Hemoglobin 7.9 g/dL (12.0-15.0); Mean Corpuscular HGB Conc 31.5 g/dl (32-36); Mean Corpuscular Hemoglobin 31.2 pg (26-34); Mean Corpuscular Volume 99.2 fl (80-100); Platelet Count Result 221 k/mm3 (150-375); Red Blood Count 2.53 M/mm3 (4.2-5.4); Red Cell Distribution Width 16.4 % (11.5-14.5); White Blood Count 7.3 K/mm3 (4.5-10.0)
[2021-05-31 06:37] LABS: Anion Gap 1 mmol/L (8-16); Blood Urea Nitrogen 22 mg/dL (7-17); Calcium 7.6 mg/dL (8.4-10.2); Carbon Dioxide 24 mmol/L (22-30); Chloride 107 mmol/L (98-107); Estimated CRCL calculation 38 ml/min; Estimated Glomerular Filt Rate > 60; Glucose 86 mg/dL (65-110); Potassium 4.1 mmol/L (3.4-5.0); Sodium 132 mmol/L (137-145)
[2021-05-31] MEDS: CARBIDOPA/LEVODOPA 25/100 MG TABLET 2 TABLET PO ×2 (08:45→12:57)
[2021-05-31] MEDS: NITROFURANTOIN MACROCRYSTALS 50 MG CAP PO (08:45)
[2021-05-31] MEDS: PANTOPRAZOLE 40 MG TABLET PO (08:45)
[2021-05-31 09:30] VITALS: PULSE 62
[2021-05-31] MEDS: nadoloL 20 MG TABLET 80 MG PO (09:30)
[2021-05-31] MEDS: DOCUSATE SODIUM 100 MG CAPSULE PO (09:31)
[2021-05-31 13:23] VITALS: O2SAT 97
[2021-05-31 14:00] VITALS: BP 137/46; PULSE 70; RESP 22; TEMP 36.8; O2SAT 99
--- NOTE | 2021-05-31 14:00 | PM.DS ---
DS: Admitting Diagnosis Discharge Date 05/31/21 Admitting Diagnosis Anemia DS: Discharge Diagnosis Discharge Diagnosis (1) Anemia: Qualifiers: Anemia type: unspecified type Qualified Code(s): D64.9 - Anemia, unspecified Code(s): D64.9 - Anemia, unspecified Status: Acute Assessment and Plan: Found to have hemoglobin of 5.7 and hematocrit of 16.5 on outpatient labs, therefore she was sent to the ED No evidence of GI bleeding. Hemoccult negative in ED. Repeat stool occult blood test collected on 05/29/2021 also negative. GI was consulted for further evaluation and recommended to hold on invasive testing as long as hemoglobin remains stable She received 2 units pRBC on 05/28/2021. Hemoglobin stabilized following transfusion. Iron panel reviewed which appears consistent with anemia of chronic disease. B12 and folate are within normal limits Hemoglobin baseline is 9.0 H&H remained relatively stable, around 8-9 Reticulocyte count was low, concerning for bone marrow suppression. Discussed case with assistant manager quality management Dr. Ortiz. Bone marrow biopsy was recommended. Discussed with patient who declined to proceed with further invasive testing. Plan is to follow serial CBC weekly and transfuse as needed with outpatient PCP follow-up. Referred to Dr. Ortiz on discharge. Patient and daughter goals agreeable to this plan. (2) Generalized weakness: Code(s): R53.1 - Weakness Status: Acute Assessment and Plan: Likely secondary to anemia and chronic deconditioning Participated in PT/OT during admission Will continue therapy at SNF on discharge (3) Urinary retention: Code(s): R33.9 - Retention of urine, unspecified Status: Acute Assessment and Plan: New onset. Patient with urinary retention on 05/28/2021 therefore Dick catheter was initiated Dick catheter removed 05/29 and patient was able to void independently. She did have a mildly elevated post void residual but was having good urinary output and was asymptomatic. Oxybutynin discontinued. Flomax not started due to BP hovering on low end and predisposition to orthostatic hypotension given Parkinsons Urine culture negative. Referral to urology per patient and family request for outpatient evaluation if issues recur/persist (4) Parkinson's disease: Code(s): G20 - Parkinson's disease Status: Acute Assessment and Plan: No acute issues Continue carbidopa-levodopa (5) Hypertension: Code(s): I10 - Essential (primary) hypertension Status: Acute Assessment and Plan: Patient with history of hypertension currently on antihypertensives. Blood pressures were on the low and in the 100-120 systolic throughout course of hospitalization Triamterene-hydrochlorothiazide was held given softer BP. Recommended outpatient BP monitoring and follow-up with PCP DS: Summary Hospital Course Hospital Course: Date of admission: 05/27/2021 Date of discharge: 05/31/2021 Inge Estevez is an 85-year-old female with a history of Parkinson's disease and urinary incontinence who presented to the emergency department on 05/27/2021 after being found to have significant anemia on outpatient labs. Patient complained of feeling weaker. On presentation, hemoglobin was 6.0, hematocrit 19.0. She was admitted to the hospitalist service for further evaluation and management and was seen in consultation by Gastroenterology. Please see above for further details. Bone marrow biopsy for further evaluation of anemia was recommended, however patient declined to proceed with this. Will follow with weekly CBC and she may follow-up with Hematology as an outpatient. Hemoglobin remained stable and she had no signs of bleeding. She was still quite weak but making improvements with physical therapy which will be continued on discharge to SNF. Given overall improvement, she was determined to no longer
[2021-05-31 15:28] LABS: EDCOVIDSCREEN Negative (Negative)
== END 2021-05-31 16:20 | DRG 812 ==
LOC: ANHED 21:18 → ANH3MEDSUR 22:11
PROVIDERS: Internal Medicine Gastroenterology; Nurse Practitioner; Physician Assistant; Admitting Provider Internal Medicine; Emergency Provider Emergency Medicine; PCP Family Medicine; Visit Provider Family Medicine
DX: D64.9 Anemia, unspecified (principal); R53.1 Weakness; G20 Parkinson's disease; I10 Essential (primary) hypertension; I48.91 Unspecified atrial fibrillation; K21.9 Gastro-esophageal reflux disease without esophagitis; Z79.899 Other long term (current) drug therapy; R33.9 Retention of urine, unspecified; Z87.440 Personal history of urinary (tract) infections
CPT/HCPCS: 36415; 36430; 51701; 71045; 80048; 80053; 81001; 82274; 82607; 82746; 83540; 83550; 83735; 83880; 84100; 85014; 85018; 85025; 85027; 85046; 85610; 85730; 86850; 86900; 86901; 86920; 87086; 87426; 93005; 97161; 97166; 97530; 97535; 99285; A9270; C9803; J7050; P9016

== ENCOUNTER 2022-02-26 11:21 | Inpatient (IN) | payer MEDICARE, SELFPAY ==
[2022-02-26] VITALS (12 sets, daily range): BP systolic 82–138; BP diastolic 40–62; PULSE 55–65; RESP 12–18; TEMP 36.2–36.9; O2SAT 88–100; BMI 26.9
--- NOTE | ~2022-02-26 | US_ITS ---
EXAMINATION: US venous doppler [facility] DATE: 02/26/2022 13:42 INDICATION: Bilateral lower limb pain TECHNIQUE: Wright scale images without and with compression and Doppler images of the bilateral lower e xtremity veins were obtained. COMPARISON: None FINDINGS: The right common femoral vein, profunda femoral vein, femoral vein, popliteal vein, peroneal trunk, p osterior tibial veins, and greater saphenous vein are patent. The left common femoral vein, profunda femoral vein, femoral vein, popliteal vein, peroneal trunk, po sterior tibial veins, and greater saphenous vein are patent. IMPRESSION: 1. Patent bilateral lower extremity veins. No evidence of deep venous thrombosis. Reviewed, dictated and finalized at location L. NG MACHINE OPERATOR IMPRESSION: 1. Patent bilateral lower extremity veins. No evidence of deep venous thrombosi s.
--- NOTE | ~2022-02-26 | XR_ITS ---
EXAMINATION: XR chest 2V DATE: 02/26/2022 12:51 INDICATION: Weakness. TECHNIQUE: Frontal and lateral views of the chest were obtained. COMPARISON: Chest single view 05/27/2021 FINDINGS: A calcified left lung nodule is consistent with old granulomatous disease. No pleural effus ion or pneumothorax. There is a moderate-sized hiatal hernia. The heart size is normal. There is a ch ronic compression fracture of T10. IMPRESSION: 1. Moderate-sized hiatal hernia. Reviewed, dictated and finalized at location A. [employer]
--- NOTE | 2022-02-26 11:29 | ECG_ITS ---
Measurements Intervals [place] Rate: 61 P: 79 UT: 182 QRS: 15 QRSD: 88 T: 30 QT: 388 QTc: 393 Interpretive Statements SINUS RHYTHM BASELINE ARTIFACT- I, III, AVL NORMAL ECG COMPARED TO ECG 05/27/2021 20:31:13 SINUS RHYTHM NOW PRESENT Electronically Signed On 02-26-2022 12:52:06 METAL SHEET ROLLER OPERATOR by Ralph Costa D.O.
[2022-02-26 11:52] LABS: Basophils Absolute Auto 0.1 K/mm3 (0.0-0.1); Basophils Percent Auto 0.8 % (0.2-1.2); Eosinophils Absolute Auto 0.1 K/mm3 (0-0.3); Hematocrit 22.6 % (37.0-47.0); Hemoglobin 7.4 g/dL (12.0-15.0); Immature Granulocyte Absolute 0.05 K/mm3 (0.00-0.031); Immature Granulocyte Percent A 0.7 % (0-0.5); Lymphocytes Absolute Auto 1.34 K/mm3 (0.9-3.2); Lymphocytes Percent Auto 18.8 % (18.3-44.2); Mean Corpuscular HGB Conc 32.7 g/dl (32-36); Mean Corpuscular Hemoglobin 32.5 pg (26-34); Mean Corpuscular Volume 99.1 fl (80-100); Mean Platelet Volume 9.7 fl (7.4-10.4); Monocytes Absolute Auto 0.6 K/mm3 (0.1-0.6); Monocytes Percent Auto 7.7 % (2.6-8.5); Platelet Count Result 312 k/mm3 (150-375); Red Blood Count 2.28 M/mm3 (4.2-5.4); Red Cell Distribution Width 13.7 % (11.5-14.5); White Blood Count 7.1 K/mm3 (4.5-10.0)
[2022-02-26 12:03] LABS: Alanine Aminotransferase 11 U/L (6-35); Alkaline Phosphatase 56 U/L (38-126); Anion Gap 7 mmol/L (8-16); Aspartate Amino Transferase 26 U/L (14-36); Bilirubin,Total 0.5 mg/dL (0.2-1.3); Blood Urea Nitrogen 81 mg/dL (7-17); Calcium 10.2 mg/dL (8.4-10.2); Carbon Dioxide 29 mmol/L (22-30); Chloride 97 mmol/L (98-107); Estimated Glomerular Filt Rate 31; Glucose 119 mg/dL (65-110); Potassium 4.1 mmol/L (3.4-5.0); Sodium 133 mmol/L (137-145)
[2022-02-26 12:08] LABS: Appearance Urine Slightly Cloudy (Clear); Bilirubin Urine Negative (Negative); Blood Urine Negative (Negative); Color Urine Yellow (Yellow); Glucose Urine UA Negative (Negative); Ketones Urine Negative (Negative); Leukocyte Esterase Ur Negative LEU/UL (Negative); Nitrate Urine Positive (Negative); Protein Urine Negative (Negative); Specific Grav Ur 1.015 (1.001-1.035); Urobilinogen Urine 0.2 mg/dL (<2.0)
[2022-02-26 12:17] LABS: Add Urine Microscopic? YES; Bacteria Urine Trace /hpf; Mucus Urine Rare /lpf; RBC Urine 0-2 /hpf (0-2); Squamous Epithelial Cell Urine Rare /hpf (Few)
--- NOTE | 2022-02-26 12:18 | ED.GENADULT ---
HPI - General Adult General Chief complaint: Weakness Stated complaint: weak Time Seen by Provider: 02/26/22 11:39 History of Present Illness HPI narrative: 86-year-old female with history of Parkinson's disease presented to the emergency department for evaluation of increased generalized weakness. Patient does reside at [facility]. Daughter states that the patient was doing fine on Wednesday but called the daughter on Wednesday stating that she was not feeling well and that she was not able to participate in physical therapy due to not being able to get out of bed. Patient does normally use a walker for short distances and wheelchair for long distances. Daughter states that the patient has unable to get out of bed since Wednesday. Patient does complain of lower leg pain bilaterally. Patient does have a dyskinesia at baseline and patient and daughter deny any change in this. Related Data Home Medications Medication Instructions Recorded Confirmed carbidopa 25 mg-levodopa 100 mg 2 tablet PO QID 05/27/21 05/27/21 tablet nadolol 80 mg tablet 80 mg PO DAILY 05/28/21 05/28/21 nitrofurantoin macrocrystal 50 mg 50 mg PO DAILY 05/28/21 05/28/21 capsule nystatin 100,000 unit/gram topical 1 applic topical TID rash 05/28/21 05/28/21 powder (Nystop) omeprazole 20 mg capsule,delayed 20 mg PO DAILY 05/28/21 05/28/21 release triamterene 37.5 1 cap PO DAILY 05/28/21 05/28/21 mg-hydrochlorothiazide 25 mg capsule Allergies Allergy/AdvReac Type Severity Reaction Status Date / Time codeine Allergy Unknown Unknown Verified 05/27/21 22:43 Review of Systems Review of Systems: CONSTITUTIONAL: See HPI EYES: Denies visual changes, redness, or discharge. ENT: Denies rhinorrhea, congestion, sore throat, or otalgia. CARDIOVASCULAR: Denies chest pain, palpitations, or edema. RESPIRATORY: Denies cough or dyspnea. GASTROINTESTINAL: Denies abdominal pain, nausea, vomiting, or diarrhea. GENITOURINARY: Denies dysuria or hematuria. SKIN: Denies rash or itching. MUSCULOSKELETAL: Denies back pain, joint pain, or myalgia. NEUROLOGIC: See HPI [facility] Past Medical History Medical History (Updated 02/26/22 @ 12:37 by Bakari Garay MD) Hypertension Parkinson's disease Family History Family History (Updated 05/27/21 @ 23:44 by Carole Helm RN) Mother CAD (coronary artery disease) Sibling Diabetes mellitus Social History Social History Smoking status: Never smoker Alcohol intake: former Substance use: never Spiritual care concerns: No Exam Narrative: APPEARANCE: Well appearing, no pain, no distress, well-nourished. HEAD: normocephalic, atraumatic. EYES: PERRLA/EOMI, conjunctivae clear. NOSE: Normal no drainage EARS:TMS clear with good light reflex. THROAT: Pharynx clear, no exudate. NECK: Supple. No adenopathy, no masses. RESPIRATORY: Airway patent, respirations nonlabored. Clear to auscultation bilaterally, no rales, rhonchi, wheezing. CARDIOVASCULAR: Regular rate and rhythm without murmurs rubs or gallops. ABDOMINAL: Soft, nontender, nondistended, normal bowel sounds MUSCULOSKELETAL: Moves all extremities. Strength/ROM intact, No edema, No calf tenderness. NEURO: Alert. Cranial nerves II through XII intact. Grossly intact SKIN: Warm, dry. Normal Color Course Course Emergency Course: Patient's blood pressure were erratic and I feel this is most likely due to the patient having a baseline tremor. Patient does have some GEOVANNA and she was treated with IV fluids. Patient was also treated with IV Zofran. Ultrasound was ordered due to the patient complaining of lower extremity pain. Ultrasound was negative for DVT. Chest x-ray did show a moderate size hiatal hernia but no etiology to explain the patient's symptoms. Patient is afebrile with no leukocytosis. Patient does have a hemoglobin of 7.4. EMR does reflect that patient has had low hemoglobin previousl
[2022-02-26 12:28] LABS: Influenza A QL RT-PCR Negative (Negative); Influenza B QL RT-PCR Negative (Negative); RSV RNA, RT-PCR Negative (Negative); SARS-CoV-2 RNA PCR Negative
[2022-02-26] MEDS: SODIUM CHLORIDE 0.9% IV 1,000 ML 999 ML IV CONT (12:31)
[2022-02-26 12:32] LABS: Creatine Kinase 44 U/L (30-135)
--- NOTE | 2022-02-26 13:00 | PM.IMHP ---
H&P: HPI History of Present Illness Date/Time: 02/26/22 13:00 Chief Complaint: Weakness. Narrative: This is a very pleasant 86-year-old female with hypertension and Parkinson who presented to the ED for evaluation of weakness. She lives in assisted living at [facility] and she is typically able to get up with a walker around her apartment however she uses a wheelchair for longer distances, mainly to go down to the dining room. For the last 5 years she has had an apartment on the 1st floor though unfortunately on a pipe broke and she was relocated to the 3rd floor. Daughter remarks that the patient does not seem to be going to the dining room as often since moving to the new apartment and the patient indicates to me that she has been having increasing difficulties getting ready to go to the dining room (for example getting dressed, putting on pants) due to progressive weakness. On Wednesday she was not feeling well enough to participate in therapy which is unusual for her and it is now to the point where she needed assistance the last couple of days to get out of a chair or bed. She has not had focal weakness but tells me that her legs feel tired, like they are not able to hold her up. She has also had some discomfort in the legs but she denies overt cramping and pain. With further questioning it sounds as though she has not been eating or drinking as usual either since the move. She denies fever, chills, sweats, headache, sinus congestion, sore throat, cough, chest pain, pleuritic pain, shortness a breath, nausea, vomiting, diarrhea, and dysuria. She also denies focal weakness, paresthesias, facial droop, difficulty swallowing, and difficulty speaking. She was afebrile on arrival today. Blood pressures have been running soft but are responsive to IV fluids. Labs were significant for acute kidney injury with a BUN and creatinine of 81 and 1.60 as well as some mild electrolyte abnormalities (she is on a combined diuretic which was recently started within the last month). She was negative for influenza, RSV, and COVID. Lower extremity venous Doppler ultrasounds were negative for DVT. Chest x-ray showed moderate size hiatal hernia. She is being admitted in this setting for IV fluid rehydration and PT/OT consult. Review of Systems Review of Systems: Twelve systems were reviewed and are negative except for as per HPI. [facility] Past Medical History Medical History (Updated 02/26/22 @ 21:26 by Tejal Ledbetter PA-C) Chronic anemia Hypertension Parkinson's disease Surgical History Surgical History (Updated 02/26/22 @ 21:23 by Tejal Ledbetter PA-C) History of bilateral cataract extraction History of dilation and curettage History of sinus surgery Family History Family History Mother CAD (coronary artery disease) Sibling Diabetes mellitus Social History Social History (Updated 02/26/22 @ 21:24 by Tejal Ledbetter PA-C) Social History: Surrogate medical decision maker: Maria G Lima, daughter. Code status: Full code. Smoking status: Never smoker Alcohol intake: never Substance use: never Substance use type: does not use Lack of Transportation: No Lack of Food: Never True Current Housing: I Have Housing Concerned About Future Housing: No Difficulty Paying Gas/Electric Bills: No Difficulty Paying for Meds: No Currently Unemployed: No Education: High School Diploma/GED Difficulty w/ Childcare or Family Care: No Additional living arrangements comments: . She has been in assisted living at [facility] since 2019. Spiritual care concerns: No Meds Home Medications and Allergies Home Medications Medication Instructions Recorded Confirmed Type carbidopa 25 mg-levodopa 100 mg 2 tablet PO QID 05/27/21 02/26/22 History tablet nadolol 80 mg tablet 80 mg PO DAILY 05/28/21 02/26/22 History nitrofurantoin macrocrystal 50 mg
[2022-02-26] MEDS: SODIUM CHLORIDE 0.9% IV 1,000 ML 75 ML IV CONT (14:39)
--- NOTE | 2022-02-26 16:50 | PC.NURSE ---
This patient, Inge Estevez, was admitted to 3 [facility] Surg Room 305-02. Patient/family oriented to hospital policies and general routines including ID bracelet, bed and alarms, visiting hours, pain management, procedures, bathroom and other care routines, personal items, smoking policy, room service/diet, and visiting hours. Information on how to activate the Rapid Response Team has been discussed. Patient/Family are encouraged to report perceived risks to care and to ask questions if they do not understand what they are told or what they should do.
[2022-02-26 22:06] LABS: Hematocrit 20.4 % (37.0-47.0); Hemoglobin 6.6 g/dL (12.0-15.0)
[2022-02-26 22:08] LABS: Magnesium 2.2 mg/dL (1.6-2.3)
[2022-02-26 22:15] LABS: Iron 64 ug/dL (37-170)
[2022-02-26 22:26] LABS: Percent Iron Saturation 30 % (20-50)
[2022-02-26 23:28] LABS: Folic Acid > 20.0 ng/mL (2.76->20)
[2022-02-27] VITALS (12 sets, daily range): BP systolic 101–121; BP diastolic 35–70; PULSE 58–77; RESP 12–20; TEMP 35.8–37.4; O2SAT 95–100
[2022-02-27] MEDS: SODIUM CHLORIDE 0.9% IV 250 ML 30 ML IV CONT (03:49)
[2022-02-27] MEDS: TUBING, BLOOD PLUM PUMP TUBING 1 EACH XX (03:49)
[2022-02-27] MEDS: DOCUSATE SODIUM 100 MG CAPSULE PO ×2 (09:15→17:33)
[2022-02-27] MEDS: CYANOCOBALAMIN 1,000 MCG TABLET 2000 MCG PO (09:15)
[2022-02-27] MEDS: CHOLECALCIFEROL 1,000 UNITS TABLET 1000 UNITS PO (09:16)
[2022-02-27] MEDS: CARBIDOPA/LEVODOPA 25/100 MG TABLET 2 TABLET PO ×4 (09:16→21:34)
[2022-02-27] MEDS: MULTIVITAMINS /C LUTEIN (CENTRUM SILVER) TABLET *BKC 1 TAB PO (09:16)
[2022-02-27] MEDS: PANTOPRAZOLE 40 MG TABLET PO (09:16)
[2022-02-27] MEDS: FERROUS SULFATE 324 MG TABLET PO (09:16)
[2022-02-27] MEDS: NITROFURANTOIN MACROCRYSTALS 50 MG CAP PO (09:16)
[2022-02-27] MEDS: CALCIUM CARBONATE (OSCAL) 500 MG TABLET PO (09:16)
[2022-02-27] MEDS: CYANOCOBALAMIN 500 MCG TABLET PO (09:17)
[2022-02-27 10:44] LABS: Hematocrit 25.3 % (37.0-47.0); Hemoglobin 8.2 g/dL (12.0-15.0); Mean Corpuscular HGB Conc 32.4 g/dl (32-36); Mean Corpuscular Hemoglobin 30.5 pg (26-34); Mean Corpuscular Volume 94.1 fl (80-100); Mean Platelet Volume 9.7 fl (7.4-10.4); Platelet Count Result 276 k/mm3 (150-375); Red Blood Count 2.69 M/mm3 (4.2-5.4); Red Cell Distribution Width 16.9 % (11.5-14.5); White Blood Count 8.7 K/mm3 (4.5-10.0)
[2022-02-27 11:11] LABS: Alanine Aminotransferase 12 U/L (6-35); Albumin Level 3.2 g/dL (3.5-5.1); Alkaline Phosphatase 41 U/L (38-126); Anion Gap 3 mmol/L (8-16); Aspartate Amino Transferase 23 U/L (14-36); Bilirubin,Total 0.6 mg/dL (0.2-1.3); Blood Urea Nitrogen 46 mg/dL (7-17); Calcium 8.6 mg/dL (8.4-10.2); Carbon Dioxide 29 mmol/L (22-30); Chloride 103 mmol/L (98-107); Estimated CRCL calculation 27 ml/min; Estimated Glomerular Filt Rate 43; Glucose 100 mg/dL (65-110); Potassium 3.3 mmol/L (3.4-5.0); Sodium 135 mmol/L (137-145)
--- NOTE | 2022-02-27 12:59 | PM.IMPN ---
Progress Note: A&P Assessment and Plan (1) Acute kidney injury: Code(s): N17.9 - Acute kidney failure, unspecified Status: Acute Assessment and Plan: Likely due to a combination of dehydration from poor oral intake, hypoperfusion from relative hypotension, and ongoing diuretic use. Holding triamterene-HCTZ. Continue gentle IV hydration. She has a history of urinary retention which needs to be ruled out. Repeat BMP shows improving BUN/creatinine, although still higher than baseline (2) Dehydration: Code(s): E86.0 - Dehydration Status: Acute Assessment and Plan: Plan is as detailed above. Monitor I/O (3) Generalized weakness: Code(s): R53.1 - Weakness Status: Acute Assessment and Plan: Likely due to a combination of dehydration, anemia and decreased activity the last several weeks. PT/OT consulted and awaiting recommendations. (4) Anemia: Qualifiers: Anemia type: unspecified type Qualified Code(s): D64.9 - Anemia, unspecified Code(s): D64.9 - Anemia, unspecified Status: Chronic Assessment and Plan: Acute on chronic. Her daughter reports baseline is 9-10. Hemoglobin 7.4 on admission. Repeat 6.6. Given 1 unit PRBC and Hgb increased 8.2. Fecal occult test x 1. Iron panel, ferritin, B12 and folate within normal limits. She is already on iron and B12 supplements that are continued. Patient has been seen by Dr. Ortiz, hematology, in the past and her daughter believes a bone marrow biopsy was recommended, however, the patient stated she would not pursue treatment if she was diagnosed with leukemia and decided not to pursue it. Check LDH, reticulocyte count and haptoglobin (5) Abnormal urinalysis: Code(s): R82.90 - Unspecified abnormal findings in urine Status: Acute Assessment and Plan: UA positive nitrates, negative leukocytes, WBC 4-6, trace bacteria. Hold on antibiotics pending urine culture. She is on prophylactic macrobid (6) Parkinson's disease: Code(s): G20 - Parkinson's disease Status: Chronic Assessment and Plan: Continue carbidopa - levodopa. Bedside swallow study ordered and no aspiration noted. (7) Hypotension: Code(s): I95.9 - Hypotension, unspecified Status: Acute Assessment and Plan: BP dropped 82/53, 90/40, Improved with IV fluids. Hold antihypertensives. Time Spent With Patient Time: Plan of care discussed with the patient and daughter. All questions answered to the best of my ability. Time with patient: 15 - 25 minutes Subjective Date/time seen: 02/27/22 12:59 Interval history: She reports her legs still feel weak. She also endorses that her dentures hurt and she thinks. No gum pain, SOB, chest pain, cough, palpitations, dizziness, abd pain, N/V/D, melena, hematochezia, or dysuria. Her daughter is at bedside and reports the patient has had issues with anemia in the past. It is monitored every 3-6 months and has been running between 9-10. The patient was taken off omeprazole once in the past and had issues with worsening anemia. Nursing reports the patient's oxygen saturation is hard to obtain due to her Parkinson tremors, but her last reading was 94% on room air. The patient reports she does feel better today. Review of Systems Review of Systems: All systems reviewed & are unremarkable except as noted in HPI and below Exam Narrative: General: tired-appearing sitting up in bed. HEENT: Normocephalic, atraumatic. PERRL, EOMI. Sclera anicteric. moist mucous membranes. Edentulous. Neck: Supple. No JVD. Respiratory: Lungs are clear to auscultation bilaterally. Cardiovascular: Regular rate and rhythm with S1-S2. Murmur 2/6 systolic LSB Gastrointestinal: Abdomen is soft, nontender, and nondistended with positive bowel sounds. Skin: Warm and dry. Generalized pallor. Extremities: No cyanosis, clubbing, or edema. Radial and pedal pul
[2022-02-27 13:35] LABS: Immature Reticulocyte Fraction 29.1 % (3.0-15.9); Reticulocyte Hemoglobin Conten 35.9 pg (28.2-35.7); Reticulocyte Percent 3.34 % (0.7-4.3); Reticulocytes Absolute 0.09 B/L (32.2-175.7)
[2022-02-27] MEDS: SODIUM CHLORIDE 0.9% IV 1,000 ML 50 ML IV CONT (14:03)
[2022-02-27] MEDS: MAGNESIUM OXIDE 200 MG TABLET PO (17:33)
[2022-02-27 21:07] LABS: IFOB Positive Control Positive; Immunochemical Fecal Occult Bl Negative (N)
[2022-02-27] MEDS: SENNA/DOCUSATE SODIUM TABLET 1 TAB PO (21:35)
[2022-02-27] MEDS: ONDANSETRON INJ 4 MG/2 ML VIAL IV PUSH (21:35)
--- NOTE | 2022-02-28 05:22 | PC.NURSE ---
Patient resting quietly in bed. Voicing no complaints throughout night. VSS. Voiding without any difficulty and emptying out all per intake. Patient doing well and voicing no complaints and no changes in status.
[2022-02-28 06:00] VITALS: BP 115/60; PULSE 71; RESP 16; TEMP 37; O2SAT 98
[2022-02-28 07:07] LABS: Hematocrit 23.1 % (37.0-47.0); Hemoglobin 7.6 g/dL (12.0-15.0); Mean Corpuscular HGB Conc 32.9 g/dl (32-36); Mean Corpuscular Hemoglobin 31.4 pg (26-34); Mean Corpuscular Volume 95.5 fl (80-100); Mean Platelet Volume 9.8 fl (7.4-10.4); Platelet Count Result 279 k/mm3 (150-375); Red Blood Count 2.42 M/mm3 (4.2-5.4); Red Cell Distribution Width 16.7 % (11.5-14.5); White Blood Count 8.6 K/mm3 (4.5-10.0)
[2022-02-28 07:17] LABS: Anion Gap 4 mmol/L (8-16); Blood Urea Nitrogen 45 mg/dL (7-17); Calcium 7.9 mg/dL (8.4-10.2); Carbon Dioxide 27 mmol/L (22-30); Chloride 106 mmol/L (98-107); Estimated CRCL calculation 32 ml/min; Estimated Glomerular Filt Rate 53; Glucose 101 mg/dL (65-110); Lactate Dehydrogenase 159 U/L (120-246); Potassium 3.7 mmol/L (3.4-5.0); Sodium 137 mmol/L (137-145)
[2022-02-28 08:00] VITALS: BP 125/52; PULSE 67; RESP 20; TEMP 36.1; O2SAT 98
[2022-02-28] MEDS: PANTOPRAZOLE 40 MG TABLET PO (08:25)
[2022-02-28] MEDS: FERROUS SULFATE 324 MG TABLET PO (08:25)
[2022-02-28] MEDS: CARBIDOPA/LEVODOPA 25/100 MG TABLET 2 TABLET PO ×4 (08:25→21:04)
[2022-02-28] MEDS: DOCUSATE SODIUM 100 MG CAPSULE PO ×2 (08:25→18:05)
[2022-02-28] MEDS: CALCIUM CARBONATE (OSCAL) 500 MG TABLET PO (08:26)
[2022-02-28] MEDS: MAGNESIUM OXIDE 200 MG TABLET PO (08:26)
[2022-02-28] MEDS: NITROFURANTOIN MACROCRYSTALS 50 MG CAP PO (08:26)
[2022-02-28] MEDS: MULTIVITAMINS /C LUTEIN (CENTRUM SILVER) TABLET *BKC 1 TAB PO (08:26)
[2022-02-28] MEDS: CHOLECALCIFEROL 1,000 UNITS TABLET 1000 UNITS PO (08:26)
[2022-02-28 10:24] VITALS: BP 129/60
[2022-02-28 10:25] VITALS: BP 125/63
--- NOTE | 2022-02-28 11:46 | PM.IMPN ---
Progress Note: A&P Assessment and Plan (1) Acute kidney injury: Code(s): N17.9 - Acute kidney failure, unspecified Status: Acute Assessment and Plan: Likely due to a combination of dehydration from poor oral intake, hypoperfusion from relative hypotension, and ongoing diuretic use. Holding triamterene-HCTZ. 02/27/22 continued gentle IV hydration. She has a history of urinary retention- PVR 227 mL today, however, patient has difficulty getting to the bedside commode due to weakness. BUN/creatinine improved and near baseline after IV fluids. continue to monitor I/O and urine output. Bladder scan as needed for lower urinary symptoms. BP 90/59 to 129/60 off antihypertensives. She likely does not need these medications at discharge. (2) Dehydration: Code(s): E86.0 - Dehydration Status: Acute Assessment and Plan: Plan is as detailed above. Monitor I/O Improving. (3) Generalized weakness: Code(s): R53.1 - Weakness Status: Acute Assessment and Plan: Likely due to a combination of dehydration, anemia and decreased activity the last several weeks. PT/OT consulted and awaiting recommendations. (4) Anemia: Qualifiers: Anemia type: unspecified type Qualified Code(s): D64.9 - Anemia, unspecified Code(s): D64.9 - Anemia, unspecified Status: Chronic Assessment and Plan: Acute on chronic. Her daughter reports baseline is 9-10. Hemoglobin 7.4 on admission. 02/26/22 Hgb 6.6. Given 1 unit PRBC and Hgb increased 8.2. Fecal occult test negative Iron panel, ferritin, B12 and folate within normal limits. She is already on iron and B12 supplements that are continued. Patient has been seen by Dr. Ortiz, hematology, in the past and her daughter believes a bone marrow biopsy was recommended, however, the patient stated she would not pursue treatment if she was diagnosed with leukemia and decided not to pursue it. LDH within normal limits haptoglobin pending. Tbili normal limits Absolute reticulocyte 0.09 low, immature retic fraction high 29.1, no s/s hemolysis suggested as above and appears to suggest bone marrow. I discussed these results with the patient's daughter and suggested she consider following up with hematology for bone marrow biopsy or PCP and to discuss Epo injections and/or blood transfusions to treat anemia. Risks/benefits were discussed. (5) Abnormal urinalysis: Code(s): R82.90 - Unspecified abnormal findings in urine Status: Ruled-out Assessment and Plan: UA positive nitrates, negative leukocytes, WBC 4-6, trace bacteria. Hold on antibiotics pending urine culture. She is on prophylactic macrobid Urine culture without growth. (6) Parkinson's disease: Code(s): G20 - Parkinson's disease Status: Chronic Assessment and Plan: Continue carbidopa - levodopa. Bedside swallow study ordered and no aspiration noted. (7) Hypotension: Code(s): I95.9 - Hypotension, unspecified Status: Acute Assessment and Plan: BP dropped 82/53, 90/40, Improved with IV fluids. Hold antihypertensives. Patient takes 80 mg nadolol and PRN diuretics. She likely does not need these medications. Monitor vitals. Plan CODE STATUS: FULL CODE Discharge disposition: [facility] Time Spent With Patient Time with patient: 15 - 25 minutes (>50% time spent with patient education and answering questions. ) Subjective Date/time seen: 02/28/22 11:46 Interval history: Patient is feeling weak and tired today. Additionally, she reports that she has to urinate but is unable to go. Nursing reports the patient was too weak to get up for breakfast today. Review of Systems Review of Systems: All systems reviewed & are unremarkable except as noted in HPI and below Exam Narrative: General: tired-appearing lying in bed. HEENT: Normocephalic, atraumatic. Pupils equal and round. Sclera anicter
[2022-02-28 14:00] VITALS: BP 90/59; PULSE 64; RESP 20; TEMP 36.2; O2SAT 96
[2022-02-28] MEDS: SENNA/DOCUSATE SODIUM TABLET 1 TAB PO (21:04)
[2022-02-28] MEDS: ACETAMINOPHEN 325 MG TABLET 650 MG PO (21:06)
[2022-02-28 22:00] VITALS: BP 93/39; PULSE 68; RESP 17; TEMP 36; O2SAT 100
[2022-03-01] VITALS (8 sets, daily range): BP systolic 98–122; BP diastolic 38–76; PULSE 63–73; RESP 15–20; TEMP 33.2–37.1; O2SAT 95–99
--- NOTE | 2022-03-01 06:37 | PC.NURSE ---
Patient resting quietly throughout night. VSS. Voicing without any difficulty in ample amounts. Tolerating PO well and denies any pain or discomfort. Patient condition stable and unchanged.
[2022-03-01] MEDS: CHOLECALCIFEROL 1,000 UNITS TABLET 1000 UNITS PO (08:42)
[2022-03-01] MEDS: MAGNESIUM OXIDE 200 MG TABLET PO (08:42)
[2022-03-01] MEDS: CYANOCOBALAMIN 1,000 MCG TABLET 2000 MCG PO (08:42)
[2022-03-01] MEDS: MULTIVITAMINS /C LUTEIN (CENTRUM SILVER) TABLET *BKC 1 TAB PO (08:42)
[2022-03-01] MEDS: CARBIDOPA/LEVODOPA 25/100 MG TABLET 2 TABLET PO ×4 (08:42→22:05)
[2022-03-01] MEDS: PANTOPRAZOLE 40 MG TABLET PO (08:42)
[2022-03-01] MEDS: DOCUSATE SODIUM 100 MG CAPSULE PO ×2 (08:42→16:43)
[2022-03-01] MEDS: CYANOCOBALAMIN 500 MCG TABLET PO (08:42)
[2022-03-01] MEDS: NITROFURANTOIN MACROCRYSTALS 50 MG CAP PO (08:42)
[2022-03-01] MEDS: CALCIUM CARBONATE (OSCAL) 500 MG TABLET PO (08:42)
[2022-03-01] MEDS: FERROUS SULFATE 324 MG TABLET PO (08:43)
[2022-03-01 09:58] LABS: Hematocrit 21.3 % (37.0-47.0)
[2022-03-01 10:04] LABS: Hemoglobin 6.9 g/dL (12.0-15.0)
[2022-03-01 10:13] LABS: Anion Gap 3 mmol/L (8-16); Blood Urea Nitrogen 29 mg/dL (7-17); Carbon Dioxide 26 mmol/L (22-30); Chloride 106 mmol/L (98-107); Estimated CRCL calculation 33 ml/min; Estimated Glomerular Filt Rate 53; Glucose 114 mg/dL (65-110); Potassium 3.7 mmol/L (3.4-5.0); Sodium 135 mmol/L (137-145)
[2022-03-01] MEDS: ACETAMINOPHEN 325 MG TABLET 650 MG PO ×2 (10:28→17:39)
[2022-03-01] MEDS: SODIUM CHLORIDE 0.9% IV 250 ML 30 ML IV CONT (14:55)
--- NOTE | 2022-03-01 16:06 | PM.IMPN ---
Progress Note: A&P Assessment and Plan (1) Acute kidney injury: Code(s): N17.9 - Acute kidney failure, unspecified Status: Acute Assessment and Plan: Likely due to a combination of dehydration from poor oral intake, hypoperfusion from relative hypotension, and ongoing diuretic use. Holding triamterene-HCTZ. 02/27/22 continued gentle IV hydration. She has a history of urinary retention- PVR 227 mL today, however, patient has difficulty getting to the bedside commode due to weakness. BUN/creatinine improved and near baseline after IV fluids. continue to monitor I/O and urine output. Bladder scan as needed for lower urinary symptoms. BP 90/59 to 129/60 off antihypertensives. She likely does not need these medications at discharge. Stable renal function (2) Dehydration: Code(s): E86.0 - Dehydration Status: Acute Assessment and Plan: Plan is as detailed above. Monitor I/O Improving. (3) Generalized weakness: Code(s): R53.1 - Weakness Status: Acute Assessment and Plan: Likely due to a combination of dehydration, anemia and decreased activity the last several weeks. PT/OT consulted and awaiting recommendations. (4) Anemia: Qualifiers: Anemia type: unspecified type Qualified Code(s): D64.9 - Anemia, unspecified Code(s): D64.9 - Anemia, unspecified Status: Chronic Assessment and Plan: Acute on chronic. Her daughter reports baseline is 9-10. Hemoglobin 7.4 on admission. 02/26/22 Hgb 6.6. Given 1 unit PRBC and Hgb increased 8.2. Fecal occult test negative Iron panel, ferritin, B12 and folate within normal limits. She is already on iron and B12 supplements that are continued. Patient has been seen by Dr. Ortiz, hematology, in the past and her daughter believes a bone marrow biopsy was recommended, however, the patient stated she would not pursue treatment if she was diagnosed with leukemia and decided not to pursue it. LDH within normal limits haptoglobin pending. Tbili normal limits Absolute reticulocyte 0.09 low, immature retic fraction high 29.1, no s/s hemolysis suggested as above and appears to suggest bone marrow. I discussed these results with the patient's daughter and suggested she consider following up with hematology for bone marrow biopsy or PCP and to discuss Epo injections and/or blood transfusions to treat anemia. Risks/benefits were discussed. 03/01/22 Hgb 6.9. Give 1 unit PRBC and repeat H/H 1 hour following. (5) Abnormal urinalysis: Code(s): R82.90 - Unspecified abnormal findings in urine Status: Ruled-out Assessment and Plan: UA positive nitrates, negative leukocytes, WBC 4-6, trace bacteria. Hold on antibiotics pending urine culture. She is on prophylactic macrobid Urine culture without growth. No further intervention needed. (6) Parkinson's disease: Code(s): G20 - Parkinson's disease Status: Chronic Assessment and Plan: Continue carbidopa - levodopa. Bedside swallow study ordered and no aspiration noted. Stable. (7) Hypotension: Code(s): I95.9 - Hypotension, unspecified Status: Acute Assessment and Plan: BP dropped 82/53, 90/40, Improved with IV fluids. Hold antihypertensives. Patient takes 80 mg nadolol and PRN diuretics. She likely does not need these medications. Monitor vitals. 03/01/22 BP 108/54 off medications. Plan CODE STATUS: FULL CODE Discharge disposition: [facility] Time Spent With Patient Time with patient: 15 - 25 minutes Subjective Date/time seen: 03/01/22 16:06 Interval history: She denies dizziness, chest pain, shortness of breath or palpitations. She had a small bowel movement 2 days ago and feels like she needs to go today, but is only passing gas. She reports working with physical therapy and thinks she is getting somewhat stronger. She is awaiting a new IV to receive a unit of blood. Review of S
[2022-03-01 20:03] LABS: Hematocrit 25.3 % (37.0-47.0); Hemoglobin 8.3 g/dL (12.0-15.0)
[2022-03-01] MEDS: SENNA/DOCUSATE SODIUM TABLET 1 TAB PO (22:04)
[2022-03-02 06:00] VITALS: BP 133/50; PULSE 74; RESP 18; TEMP 36.1; O2SAT 96
--- NOTE | 2022-03-02 09:05 | PM.DS ---
DS: Admitting Diagnosis Discharge Date 03/02/2022 1219 Admitting Diagnosis Acute kidney injury Dehydration Generalized weakness Anemia Abnormal urinalysis Parkinson's disease Hypotension DS: Discharge Diagnosis Discharge Diagnosis (1) Acute kidney injury: Code(s): N17.9 - Acute kidney failure, unspecified Status: Acute Assessment and Plan: Likely due to a combination of dehydration from poor oral intake, hypoperfusion from relative hypotension, and ongoing diuretic use. Stopped triamterene-HCTZ. Treated with gentle IV hydration. She has a history of urinary retention- PVR 227 mL. Improved but bladder emptying when patient is up to bedside commode. BUN/creatinine improved and near baseline after IV fluids. BP 90/59 to 129/60 off antihypertensives. She likely does not need these medications at discharge. Stable renal function (2) Dehydration: Code(s): E86.0 - Dehydration Status: Acute Assessment and Plan: Plan is as detailed above. Monitor I/O Improved with IV fluids (3) Generalized weakness: Code(s): R53.1 - Weakness Status: Acute Assessment and Plan: Likely due to a combination of dehydration, anemia and decreased activity the last several weeks. PT/OT consulted and awaiting recommendations. (4) Anemia: Qualifiers: Anemia type: unspecified type Qualified Code(s): D64.9 - Anemia, unspecified Code(s): D64.9 - Anemia, unspecified Status: Chronic Assessment and Plan: Acute on chronic. Her daughter reports baseline is 9-10. Hemoglobin 7.4 on admission. 02/26/22 Hgb 6.6. Given 1 unit PRBC and Hgb increased 8.2. Fecal occult test negative Iron panel, ferritin, B12 and folate within normal limits. She is already on iron and B12 supplements that were continued. Patient has been seen by Dr. Ortiz, hematology, in the past and her daughter believes a bone marrow biopsy was recommended, however, the patient stated she would not pursue treatment if she was diagnosed with leukemia and decided not to have bone marrow biopsy. She also did not follow-up with hematology LDH within normal limits. haptoglobin pending at discharge Tbili normal limits Absolute reticulocyte 0.09 low, immature retic fraction high 29.1, no s/s hemolysis suggested as above and appears to suggest bone marrow. I discussed these results with the patient's daughter and suggested she consider following up with hematology for bone marrow biopsy or PCP and to discuss Epo injections and/or blood transfusions to treat anemia. Risks/benefits were discussed. 03/01/22 Hgb 6.9. Give 1 unit PRBC and repeat H/H 1 hour following. Hemoglobin 8.3/hematocrit 25.3% on discharge (5) Abnormal urinalysis: Code(s): R82.90 - Unspecified abnormal findings in urine Status: Ruled-out Assessment and Plan: UA positive nitrates, negative leukocytes, WBC 4-6, trace bacteria. Held on antibiotics pending urine culture. She is on prophylactic macrobid Urine culture without growth. No further intervention needed. (6) Parkinson's disease: Code(s): G20 - Parkinson's disease Status: Chronic Assessment and Plan: Continue carbidopa - levodopa. Bedside swallow study ordered and no aspiration noted. PT/OT consulted and SNF recommended. (7) Hypotension: Qualifiers: Hypotension type: hypotension due to hypovolemia Qualified Code(s): I95.89 - Other hypotension; E86.1 - Hypovolemia Code(s): I95.9 - Hypotension, unspecified Status: Acute Assessment and Plan: BP dropped 82/53, 90/40, Improved with IV fluids. Hold antihypertensives. Patient takes 80 mg nadolol and PRN diuretics. She likely does not need these medications. Monitor vitals. 03/01/22 BP 108/54 off medications. Patient discharged off nadolol due to hypotension. Triamterene/hydrochlorothiazide p.r.n. dose decreased by half for edema. DS: Summary [facility]
[2022-03-02] MEDS: CARBIDOPA/LEVODOPA 25/100 MG TABLET 2 TABLET PO ×2 (09:28→12:29)
[2022-03-02] MEDS: CYANOCOBALAMIN 500 MCG TABLET PO (09:28)
[2022-03-02] MEDS: PANTOPRAZOLE 40 MG TABLET PO (09:28)
[2022-03-02] MEDS: NITROFURANTOIN MACROCRYSTALS 50 MG CAP PO (09:28)
[2022-03-02] MEDS: MULTIVITAMINS /C LUTEIN (CENTRUM SILVER) TABLET *BKC 1 TAB PO (09:28)
[2022-03-02] MEDS: FERROUS SULFATE 324 MG TABLET PO (09:28)
[2022-03-02] MEDS: CALCIUM CARBONATE (OSCAL) 500 MG TABLET PO (09:28)
[2022-03-02] MEDS: MAGNESIUM OXIDE 200 MG TABLET PO (09:28)
[2022-03-02] MEDS: CYANOCOBALAMIN 1,000 MCG TABLET 2000 MCG PO (09:28)
[2022-03-02] MEDS: CHOLECALCIFEROL 1,000 UNITS TABLET 1000 UNITS PO (09:28)
[2022-03-02] MEDS: DOCUSATE SODIUM 100 MG CAPSULE PO (09:28)
[2022-03-02 11:00] VITALS: BP 122/50
[2022-03-02 11:05] VITALS: BP 121/61
[2022-03-02 11:16] VITALS: BP 116/51
[2022-03-02 11:31] LABS: EDCOVIDSCREEN Negative (Negative)
[2022-03-02 11:47] VITALS: O2SAT 95
[2022-03-04 20:33] LABS: Haptoglobin 196 mg/dL (43-212)
== END 2022-03-02 13:05 | DRG 684 ==
LOC: ANHED 15:46 → ANH3MEDSUR 15:51
PROVIDERS: Physician Assistant; Admitting Provider Student in an Organized Health Care Education/Training Program; Emergency Provider Emergency Medicine; Visit Provider Nurse Practitioner Family
DX: N17.9 Acute kidney failure, unspecified (principal); E86.0 Dehydration; R33.9 Retention of urine, unspecified; D64.9 Anemia, unspecified; G20 Parkinson's disease; I95.9 Hypotension, unspecified; E86.1 Hypovolemia
CPT/HCPCS: 36415; 36430; 71046; 80048; 80053; 81001; 82274; 82550; 82607; 82728; 82746; 83010; 83540; 83550; 83615; 83735; 84443; 85014; 85018; 85025; 85027; 85046; 86850; 86900; 86901; 86923; 87086; 87426; 87637; 92610; 93005; 93970; 96360; 96361; 97110; 97116; 97161; 97165; 97530; 99285; A9270; C9803; G0378; J2405; J7030; J7050; P9016

== ENCOUNTER 2022-04-09 12:44 | Outpatient (CLI) | payer MEDICARE, SELFPAY ==
[2022-04-09 12:59] LABS: Basophils Absolute Auto 0.1 K/mm3 (0.0-0.1); Basophils Percent Auto 1.4 % (0.2-1.2); Eosinophils Absolute Auto 0.3 K/mm3 (0-0.3); Eosinophils Percent Auto 4.3 % (0-4.4); Hematocrit 29.1 % (37.0-47.0); Hemoglobin 9.2 g/dL (12.0-15.0); Immature Granulocyte Absolute 0.03 K/mm3 (0.00-0.031); Immature Granulocyte Percent A 0.5 % (0-0.5); Lymphocytes Absolute Auto 1.02 K/mm3 (0.9-3.2); Lymphocytes Percent Auto 17.6 % (18.3-44.2); Mean Corpuscular HGB Conc 31.6 g/dl (32-36); Mean Corpuscular Hemoglobin 31.2 pg (26-34); Mean Corpuscular Volume 98.6 fl (80-100); Mean Platelet Volume 8.6 fl (7.4-10.4); Monocytes Absolute Auto 0.6 K/mm3 (0.1-0.6); Neutrophils Absolute Auto 3.8 K/mm3 (1.3-6.7); Neutrophils Percent Auto 65.2 % (45.5-73.1); Platelet Count Result 293 k/mm3 (150-375); Red Blood Count 2.95 M/mm3 (4.2-5.4); Red Cell Distribution Width 13.4 % (11.5-14.5); White Blood Count 5.8 K/mm3 (4.5-10.0)
[2022-04-09 13:03] LABS: Blood Urea Nitrogen 20 mg/dL (8-26); Carbon Dioxide 26 mmol/L (22-30); Chloride 102 mmol/L (98-109); Estimated Glomerular Filt Rate 47; Glucose 95 mg/dL (70-105); Ionized Calcium (POC) 1.22 mmol/L (1.11-1.31); Potassium 4.1 mmol/L (3.5-4.9); Sodium 137 mmol/L (138-146)
[2022-04-10 04:17] LABS: Alanine Aminotransferase 8 U/L (6-35); Albumin Level 3.8 g/dL (3.5-5.1); Alkaline Phosphatase 97 U/L (38-126); Anion Gap 5 mmol/L (8-16); Aspartate Amino Transferase 22 U/L (14-36); Bilirubin,Total 0.4 mg/dL (0.2-1.3); Blood Urea Nitrogen 21 mg/dL (7-17); Calcium 8.9 mg/dL (8.4-10.2); Carbon Dioxide 27 mmol/L (22-30); Chloride 104 mmol/L (98-107); Estimated Glomerular Filt Rate 60; Glucose 93 mg/dL (65-110); Potassium 4.2 mmol/L (3.4-5.0); Sodium 136 mmol/L (137-145)
== END 2022-04-09 12:45 | disposition home or self-care (01) ==
LOC: ANHLAB 12:46
PROVIDERS: Visit Provider Internal Medicine Hematology & Oncology
DX: D64.9 Anemia, unspecified (principal)
CPT/HCPCS: 36415; 80047; 80053; 85025

== ENCOUNTER 2022-07-16 10:27 | Emergency (ER) | payer MEDICARE, SELFPAY ==
[2022-07-16] VITALS (15 sets, daily range): BP systolic 111–143; BP diastolic 53–78; PULSE 63–101; RESP 16–27; TEMP 36.8; O2SAT 93–100
--- NOTE | ~2022-07-16 | XR_ITS ---
EXAMINATION: XR chest 1V portable DATE: 07/16/2022 11:37 INDICATION: Weakness. TECHNIQUE: A single frontal view of the chest was obtained. COMPARISON: Chest 2 views 02/26/2022 FINDINGS: Skinfolds overlie right hemithorax. Calcified bilateral lung nodules are consistent with ol d adenomatous disease. There is mild atelectasis at left lung base. No pleural effusion or pneumothor ax. The heart size is normal. There is a moderate-sized hiatal hernia. IMPRESSION: 1. Mild atelectasis at left lung base. 2. Moderate-sized hiatal hernia. Reviewed, dictated and finalized at location A.
--- NOTE | 2022-07-16 10:40 | ECG_ITS ---
Measurements Intervals Una Rate: 72 P: 58 ME: 178 QRS: -3 QRSD: 98 T: 22 QT: 344 QTc: 378 Interpretive Statements SINUS RHYTHM COMPARED TO ECG 02/26/2022 11:31:17 NO SIGNIFICANT CHANGES Electronically Signed On 07-16-2022 15:28:12 CDT by Corry Miller M.D.
--- NOTE | 2022-07-16 10:55 | ED.WEAKNESS ---
HPI - Weakness General Chief complaint: Weakness Stated complaint: weakness Time Seen by Provider: 07/16/22 11:03 Source: patient, family and EMS Mode of arrival: EMS Limitations: no limitations History of Present Illness HPI Narrative: 86 years old white female came from [facility] with weakness. Her daughter is still in need that patient been weak for over 2 weeks. Had recent urinary tract infection, finished antibiotic 3 days ago. Patient denies any symptoms, feeling okay, she denies any fever, chills, nausea, vomiting, headache, shortness of breath, chest pain, abdominal pain or back pain. Patient does not believe that she is weak. Related Data Home Medications Medication Instructions Recorded Confirmed carbidopa 25 mg-levodopa 100 mg 2 tablet PO QID 05/27/21 02/26/22 tablet nitrofurantoin macrocrystal 50 mg 50 mg PO DAILY 05/28/21 02/26/22 capsule omeprazole 20 mg capsule,delayed 20 mg PO DAILY 05/28/21 02/26/22 release B12 2,500 mg PO Q48H 02/26/22 02/27/22 calcium 500 mg tablet 500 mg PO DAILY 02/26/22 02/26/22 cholecalciferol (vitamin D3) 25 25 mcg PO DAILY 02/26/22 02/26/22 mcg (1,000 unit) tablet cod liver oil 1 cap PO DAILY 02/26/22 02/26/22 cranberry 400 mg capsule 400 mg PO DAILY 02/26/22 02/26/22 docusate sodium 100 mg capsule 100 mg PO BID 02/26/22 02/26/22 ferrous sulfate 325 mg (65 mg 325 mg PO DAILY 02/26/22 02/26/22 iron) tablet (Iron (ferrous sulfate)) magnesium 100 mg capsule 300 mg PO DAILY 02/26/22 02/26/22 multivit with minerals-iron 18 1 tablet PO DAILY 02/26/22 02/26/22 mg-folic ac 400 mcg-vit K 25 mcg tablet (Adults Multivitamin) Allergies Allergy/AdvReac Type Severity Reaction Status Date / Time codeine Allergy Unknown Unknown Verified 07/16/22 11:29 Review of Systems Review of Systems: All systems reviewed & are unremarkable except as noted in HPI and below PMFSH Past Medical History Medical History Chronic anemia Hypertension Parkinson's disease Surgical History Surgical History History of bilateral cataract extraction History of dilation and curettage History of sinus surgery Family History Family History Mother CAD (coronary artery disease) Sibling Diabetes mellitus Social History Social History Social History: Surrogate medical decision maker: Maria G Lima, daughter. Code status: Full code. Smoking status: Never smoker Alcohol intake: never Substance use: never Substance use type: does not use Lack of Transportation: No Lack of Food: Never True Current Housing: I Have Housing Concerned About Future Housing: No Difficulty Paying Gas/Electric Bills: No Difficulty Paying for Meds: No Currently Unemployed: No Education: High School Diploma/GED Difficulty w/ Childcare or Family Care: No Additional living arrangements comments: . She has been in assisted living at [facility] since 2019. Spiritual care concerns: No Exam Narrative: General appearance: Well-developed, well-nourished Skin: Normal color Head: Normocephalic, nontraumatic Eyes: Clear conjunctiva ENT: Oropharynx normal, ears normal, nose normal Neck: Supple, nontender Chest and respiratory: Airway patent, no respiratory distress, no accessory muscle use Heart: Regular rate/rhythm Abdomen: Soft, nontender, no organomegaly, quiet bowel sounds Vascular: Normal peripheral pulses, normal capillary refill. Neurologic: Alert and oriented ?3, parkinsonism
[2022-07-16 11:23] LABS: Basophils Absolute Auto 0.1 K/mm3 (0.0-0.1); Basophils Percent Auto 0.9 % (0.2-1.2); Eosinophils Absolute Auto 0.2 K/mm3 (0-0.3); Eosinophils Percent Auto 2.1 % (0-4.4); Hematocrit 31.5 % (37.0-47.0); Hemoglobin 10.2 g/dL (12.0-15.0); Immature Granulocyte Absolute 0.04 K/mm3 (0.00-0.031); Immature Granulocyte Percent A 0.5 % (0-0.5); Lymphocytes Absolute Auto 0.94 K/mm3 (0.9-3.2); Lymphocytes Percent Auto 12.2 % (18.3-44.2); Mean Corpuscular HGB Conc 32.4 g/dl (32-36); Mean Corpuscular Hemoglobin 30.9 pg (26-34); Mean Corpuscular Volume 95.5 fl (80-100); Mean Platelet Volume 9.8 fl (7.4-10.4); Monocytes Absolute Auto 0.6 K/mm3 (0.1-0.6); Monocytes Percent Auto 7.5 % (2.6-8.5); Neutrophils Absolute Auto 5.9 K/mm3 (1.3-6.7); Neutrophils Percent Auto 76.8 % (45.5-73.1); Platelet Count Result 267 k/mm3 (150-375); Red Cell Distribution Width 14.2 % (11.5-14.5); White Blood Count 7.7 K/mm3 (4.5-10.0)
[2022-07-16 11:32] LABS: Appearance Urine Clear (Clear); Bacteria Urine 4+ /hpf; Bilirubin Urine Negative (Negative); Blood Urine Negative (Negative); Color Urine Yellow (Yellow); Glucose Urine UA Negative (Negative); Ketones Urine Negative (Negative); Leukocyte Esterase Ur 1+ LEU/UL (Negative); Nitrate Urine Negative (Negative); Non Pathogenic Casts 0-2; Protein Urine Negative (Negative); RBC Urine 0-2 /hpf (0-2); Specific Grav Ur 1.016 (1.001-1.035); Squamous Epithelial Cell Urine None seen /hpf (Few); Urobilinogen Urine 0.2 mg/dL (<2.0); pH Urine 6.5 (5.0-9.0)
[2022-07-16 11:34] LABS: Add Urine Microscopic? YES
[2022-07-16 11:37] LABS: Alanine Aminotransferase 9 U/L (6-35); Albumin Level 3.9 g/dL (3.5-5.1); Alkaline Phosphatase 54 U/L (38-126); Anion Gap 2 mmol/L (8-16); Aspartate Amino Transferase 23 U/L (14-36); Bilirubin,Total 0.8 mg/dL (0.2-1.3); Blood Urea Nitrogen 42 mg/dL (7-17); Carbon Dioxide 34 mmol/L (22-30); Chloride 99 mmol/L (98-107); Estimated CRCL calculation 20 ml/min; Estimated Glomerular Filt Rate 33; Glucose 99 mg/dL (65-110); Potassium 4.3 mmol/L (3.4-5.0); Sodium 135 mmol/L (137-145)
[2022-07-16 11:39] LABS: CRP < 0.5 mg/dL (<1.0)
[2022-07-16 11:46] LABS: Erythrocyte Sedimentation Rate 23 mm/hr (0-20)
[2022-07-16 11:49] LABS: Troponin I < 0.012 ng/mL (0.000-0.034)
== END 2022-07-16 13:57 ==
PROVIDERS: Emergency Provider Emergency Medicine
DX: R53.1 Weakness (principal); D64.9 Anemia, unspecified; Z98.42 Cataract extraction status, left eye; Z98.41 Cataract extraction status, right eye
CPT/HCPCS: 36415; 71045; 80053; 81001; 84484; 85025; 85652; 86140; 87086; 93005; 99284

== ENCOUNTER 2022-12-15 06:40 | Emergency (ER) | payer MEDICARE, SELFPAY ==
[2022-12-15] VITALS (32 sets, daily range): BP systolic 120–136; BP diastolic 49–66; PULSE 65–100; RESP 12–24; TEMP 36.5; O2SAT 96–100
--- NOTE | ~2022-12-15 | XR_ITS ---
EXAMINATION: XR ankle LT min 3V DATE: 12/15/2022 08:01 INDICATION: Left ankle injury. TECHNIQUE: 4 views of left ankle were obtained. COMPARISON: None. FINDINGS: Bone alignment is normal. No fracture. There is mild midfoot osteoarthritis. There is an en thesophyte at plantar aspect of calcaneal tuberosity. IMPRESSION: 1. Mild midfoot osteoarthritis. Reviewed, dictated and finalized at location E.
--- NOTE | ~2022-12-15 | CT_ITS ---
EXAMINATION: CT brain wo con DATE: 12/15/2022 08:06 INDICATION: Minor head injury. TECHNIQUE: Computed tomography (CT) of the head was performed without intravenous contrast. The mA wa s adjusted according to patient size. Iterative reconstruction technique was employed. The dose-lengt h product was 605.33 mGy-cm. COMPARISON: None FINDINGS: There is volume loss of right temporal parietal region. There is no intracranial hemorrhage , acute infarction, or abnormal intracranial mass lesion. There is ex vacuo dilatation of trigone and temporal horn of right lateral ventricle. There is mucosal thickening in the paranasal sinuses with surgical changes. There are likely changes of ocular lens replacement surgeries. The mastoid air cell s are normal. IMPRESSION: 1. Volume loss of right temporal parietal region. Reviewed, dictated and finalized at location E.
--- NOTE | ~2022-12-15 | XR_ITS ---
EXAMINATION: XR hip LT 2V w AP pelvis DATE: 12/15/2022 08:01 INDICATION: Left hip injury. TECHNIQUE: An anteroposterior view of the pelvis and 2 views of left hip were obtained. COMPARISON: None. FINDINGS: There is lumbar dextroscoliosis and severe spondylosis. There is a fracture of left inferio r pubic ramus. There is moderate osteoarthritis of the hips. IMPRESSION: 1. Fracture of left inferior pubic ramus. 2. Moderate osteoarthritis of the hips. Reviewed, dictated and finalized at location E.
--- NOTE | ~2022-12-15 | XR_ITS ---
EXAMINATION: XR knee LT 3V DATE: 12/15/2022 08:01 INDICATION: Left knee injury. TECHNIQUE: 3 views of left knee were obtained. COMPARISON: None. FINDINGS: Bone alignment is normal. No fracture. There is severe osteoarthritis of lateral and patell ofemoral compartments and mild osteoarthritis of medial compartment. There is chondrocalcinosis of me dial meniscus. No knee joint effusion. IMPRESSION: 1. Severe left knee osteoarthritis. Reviewed, dictated and finalized at location E.
--- NOTE | 2022-12-15 07:33 | ED.FALL ---
HPI - Fall General Chief Complaint: Fall Stated Complaint: fall, hip injury Time Seen by Provider: 12/15/22 06:59 History of Present Illness HPI Narrative: Patient is an 87-year-old female who presents ER with left-sided leg pain. Ongoing for 2 days. She tried to transfer to her wheelchair independently when she has limited mobility and fell. She did strike her head but did not lose consciousness. She is on no blood thinning medications. She has had trouble bearing weight since the fall due to pain in her hip/knee/ankle. No deformity or bruising. Pain is worse with movement. Related Data Home Medications Medication Instructions Recorded Confirmed carbidopa 25 mg-levodopa 100 mg 2 tablet PO QID 05/27/21 12/15/22 tablet nitrofurantoin macrocrystal 50 mg 50 mg PO DAILY 05/28/21 12/15/22 capsule omeprazole 20 mg capsule,delayed 20 mg PO DAILY 05/28/21 02/26/22 release B12 2,500 mg PO Q48H 02/26/22 12/15/22 calcium 500 mg tablet 500 mg PO DAILY 02/26/22 02/26/22 cholecalciferol (vitamin D3) 25 25 mcg PO DAILY 02/26/22 12/15/22 mcg (1,000 unit) tablet cod liver oil 1 cap PO DAILY 02/26/22 12/15/22 cranberry 400 mg capsule 400 mg PO DAILY 02/26/22 12/15/22 docusate sodium 100 mg capsule 100 mg PO BID 02/26/22 02/26/22 ferrous sulfate 325 mg (65 mg 325 mg PO DAILY 02/26/22 12/15/22 iron) tablet (Iron (ferrous sulfate)) magnesium 100 mg capsule 300 mg PO DAILY 02/26/22 12/15/22 multivit with minerals-iron 18 1 tablet PO DAILY 02/26/22 12/15/22 mg-folic ac 400 mcg-vit K 25 mcg tablet (Adults Multivitamin) Allergies Allergy/AdvReac Type Severity Reaction Status Date / Time codeine Allergy Unknown Unknown Verified 12/15/22 06:51 [facility] Past Medical History Medical History Chronic anemia Hypertension Parkinson's disease Surgical History Surgical History History of bilateral cataract extraction History of dilation and curettage History of sinus surgery Family History Family History Mother CAD (coronary artery disease) Sibling Diabetes mellitus Social History Social History Social History: Surrogate medical decision maker: Maria G Lima, daughter. Code status: Full code. Smoking status: Never smoker Alcohol intake: never Substance use: never Substance use type: does not use Lack of Transportation: No Lack of Food: Never True Current Housing: I Have Housing Concerned About Future Housing: No Difficulty Paying Gas/Electric Bills: No Difficulty Paying for Meds: No Currently Unemployed: No Education: High School Diploma/GED Difficulty w/ Childcare or Family Care: No Additional living arrangements comments: . She has been in assisted living at [facility] since 2019. Spiritual care concerns: No Exam Narrative: GENERAL: Chronically ill-appearing, well-nourished, and in no acute distress. HEAD: Normocephalic, atraumatic. ENT: Mucous membranes moist. NECK: Supple. CHEST: Clear to auscultation. No respiratory distress. HEART: Regular rate and rhythm. Normal peripheral pulses. ABDOMEN: Soft, nontender, nondistended. EXTREMITIES: Increased pain at left hip/pelvic region with range of motion left lower extremity passively. Patient is able to stand. No deformity of the right lower extremity or upper extremities. SKIN: Warm, dry, no rash. NEURO: Alert and oriented x3. PSYCH: Normal mood and affect. Course Course Emergency Course: Patient with new pubic rami fracture. It is felt patient will need placement. Patient eval by PT and OT and they recommend acute inpatient rehab with 3 hours of therapy daily. Patient also has some dehydration which is likely secondary to some of her decreased mobility since this injury occurred couple days ago. Sveta
[2022-12-15 12:11] LABS: Basophils Percent Auto 0.5 % (0.2-1.2); Eosinophils Absolute Auto 0.2 K/mm3 (0-0.3); Eosinophils Percent Auto 2.2 % (0-4.4); Hematocrit 30.4 % (37.0-47.0); Hemoglobin 9.8 g/dL (12.0-15.0); Immature Granulocyte Absolute 0.03 K/mm3 (0.00-0.031); Immature Granulocyte Percent A 0.4 % (0-0.5); Lymphocytes Absolute Auto 0.72 K/mm3 (0.9-3.2); Lymphocytes Percent Auto 9.8 % (18.3-44.2); Mean Corpuscular HGB Conc 32.2 g/dl (32-36); Mean Corpuscular Hemoglobin 32.1 pg (26-34); Mean Corpuscular Volume 99.7 fl (80-100); Mean Platelet Volume 9.6 fl (7.4-10.4); Monocytes Absolute Auto 0.5 K/mm3 (0.1-0.6); Monocytes Percent Auto 6.9 % (2.6-8.5); Neutrophils Absolute Auto 5.9 K/mm3 (1.3-6.7); Neutrophils Percent Auto 80.2 % (45.5-73.1); Platelet Count Result 234 k/mm3 (150-375); Red Blood Count 3.05 M/mm3 (4.2-5.4); White Blood Count 7.4 K/mm3 (4.5-10.0)
[2022-12-15 12:21] LABS: Anion Gap 2 mmol/L (8-16); Blood Urea Nitrogen 42 mg/dL (7-17); Calcium 9.5 mg/dL (8.4-10.2); Carbon Dioxide 31 mmol/L (22-30); Chloride 101 mmol/L (98-107); Estimated Glomerular Filt Rate 33; Glucose 128 mg/dL (65-110); Potassium 4.2 mmol/L (3.4-5.0); Sodium 134 mmol/L (137-145)
--- NOTE | 2022-12-15 12:30 | PC.NURSE ---
pt/ot contacted regarding need for evaluation to attempt to place pt in skilled rehab facility due to pelvic fracture.
[2022-12-15] MEDS: SODIUM CHLORIDE 0.9% IV 1,000 ML 999 ML IV CONT (14:28)
--- NOTE | 2022-12-15 14:31 | PC.NURSE ---
ns line iniated with ns infusing without difficulty. career education teacher anne attempting to place pt in [facility]. pts daughter at bedside. pt denies pain at rest.
--- NOTE | 2022-12-15 17:59 | PC.NURSE ---
Report called to [facility]
--- NOTE | 2022-12-17 08:19 | PCCCNOTE ---
Late entry 12/15/22 1750 Pt. is a resident at [facility], that fell and fractured her pubic ramus. She is not being admitted, but request to be placed in acute rehab, being she is having difficulty ambulating. Spoke with pt and her daughter Maria G about their choices of placement. They chose [facility] and was accepted by the facility. Pt and daughter verbalized understanding, daughter spoke with Yari from [facility]. Awaiting an ambulance to transport patient.
== END 2022-12-16 01:32 ==
PROVIDERS: Emergency Provider Emergency Medicine
DX: S32.592A Other specified fracture of left pubis, initial encounter for closed fracture (principal); G20.A1 Parkinson's disease without dyskinesia, without mention of fluctuations; E86.0 Dehydration; W05.0XXA Fall from non-moving wheelchair, initial encounter; I10 Essential (primary) hypertension; D64.9 Anemia, unspecified
CPT/HCPCS: 36415; 70450; 73502; 73562; 73610; 80048; 85025; 96360; 97161; 97165; 99284; J7030

== ENCOUNTER 2023-05-05 11:39 | Inpatient (IN) | payer MEDICARE, SELFPAY ==
[2023-05-05] VITALS (17 sets, daily range): BP systolic 108–154; BP diastolic 40–96; PULSE 76–88; RESP 18–27; TEMP 36.6–38.1; O2SAT 90–100; BMI 26.1
--- NOTE | ~2023-05-05 | XR_ITS ---
Portable chest x-ray Comparison: 07/16/2022 Clinical History: Shortness of breath Findings: Questionable minimal bibasilar haziness. Hazy opacity right suprahilar lesion noted. Cardi omediastinal silhouette is stable. Degenerative change of both shoulders present, left worse than rig ht. Impression: Questionable minimal bibasilar pulmonary edema. Hazy opacity right suprahilar. This is possibly related to the anterior right first rib, versus possi ble focal pneumonitis. Reviewed, dictated and finalized at location . Impression: Questionable minimal bibasilar pulmonary edema. Hazy opacity right suprahilar. This is possibly related to the anterior right f irst rib, versus possible focal pneumonitis.
--- NOTE | ~2023-05-05 | CT_ITS ---
EXAMINATION: CT diagnostic chest wo con DATE: 05/05/2023 14:56 INDICATION: Shortness of breath, productive cough. Hazy opacity right suprahilar area noted on 05/05/2023 portable chest radiograph TECHNIQUE: Computed tomography (CT) of the chest was performed without intravenous contrast. Automate d exposure control and iterative reconstruction technique were employed. Exam dose: 214.29 mGy-cm to rj exam DLP. COMPARISON: 05/05/2023 portable AP chest 07/16/2022 portable AP chest FINDINGS: Heart size is within normal range. Coronary artery calcification. Thoracic aortic and great vessel calcifications. No thoracic aortic aneurysm. No hilar or mediastinal mass lesion or lymphadenopathy is noted. There is prominent patchy infiltrate in the right apical region and anterior segment of the right upp er lobe in addition to patchy right lower lobe infiltrate and right basilar lower lobe atelectasis. Minimal infiltrate or atelectasis of the lingula and left lower lobe. Large sliding hiatal hernia containing the majority of the stomach. Multiple gallstones. Hepatic calcified granuloma. Splenic calcified granulomas. Normal morphology of the adrenal glands. Severe degenerative disc disease at C5-6 and C6-7. Moderately prominent anterior wedge compression fracture deformity of T10. Degenerative changes of th e thoracic and lumbar spine. IMPRESSION: Bilateral pulmonary infiltrates, more prominent on the right, suggesting pneumonia Right lower lobe basilar atelectasis Large sliding hiatal hernia Cholelithiasis Reviewed, dictated and finalized at Location A. Reviewed, dictated and finalized at location B. IMPRESSION: Bilateral pulmonary infiltrates, more prominent on the right, sugg esting pneumonia Right lower lobe basilar atelectasis Large sliding hiatal hernia Cholelithiasis
--- NOTE | 2023-05-05 11:54 | ECG_ITS ---
Measurements Intervals [place] Rate: 85 P: 66 HI: 170 QRS: 6 QRSD: 87 T: 9 QT: 348 QTc: 414 Interpretive Statements SINUS RHYTHM CONSIDER ANTERIOR INFARCT, AGE INDETERMINATE CONSIDER INFERIOR INFARCT, AGE INDETERMINATE BASELINE ARTIFACT- I, III, AVL, AVF ABNORMAL ECG COMPARED TO ECG 07/16/2022 10:50:19 NO SIGNIFICANT CHANGES Electronically Signed On 05-05-2023 13:40:17 CDT by Ralph Costa D.O.
[2023-05-05 12:35] LABS: Basophils Percent Auto 0.3 % (0.2-1.2); Eosinophils Percent Auto 0.1 % (0-4.4); Hematocrit 31.8 % (37.0-47.0); Hemoglobin 10.3 g/dL (12.0-15.0); Immature Granulocyte Absolute 0.05 K/mm3 (0.00-0.031); Immature Granulocyte Percent A 0.6 % (0-0.5); Lymphocytes Absolute Auto 0.61 K/mm3 (0.9-3.2); Lymphocytes Percent Auto 7.1 % (18.3-44.2); Mean Corpuscular HGB Conc 32.4 g/dl (32-36); Mean Corpuscular Hemoglobin 30.1 pg (26-34); Mean Platelet Volume 9.9 fl (7.4-10.4); Monocytes Absolute Auto 0.8 K/mm3 (0.1-0.6); Monocytes Percent Auto 9.5 % (2.6-8.5); Neutrophils Absolute Auto 7.1 K/mm3 (1.3-6.7); Neutrophils Percent Auto 82.4 % (45.5-73.1); Platelet Count Result 246 k/mm3 (150-375); Red Blood Count 3.42 M/mm3 (4.2-5.4); Red Cell Distribution Width 13.2 % (11.5-14.5); White Blood Count 8.6 K/mm3 (4.5-10.0)
[2023-05-05 12:45] LABS: Alanine Aminotransferase 9 U/L (6-35); Albumin Level 3.3 g/dL (3.5-5.1); Alkaline Phosphatase 70 U/L (38-126); Anion Gap 5 mmol/L (8-16); Aspartate Amino Transferase 30 U/L (14-36); Bilirubin,Total 0.7 mg/dL (0.2-1.3); Blood Urea Nitrogen 21 mg/dL (7-17); Calcium 8.4 mg/dL (8.4-10.2); Carbon Dioxide 28 mmol/L (22-30); Chloride 100 mmol/L (98-107); Estimated CRCL calculation 31 ml/min; Estimated Glomerular Filt Rate 47; Glucose 134 mg/dL (65-110); Potassium 3.7 mmol/L (3.4-5.0); Sodium 133 mmol/L (137-145)
[2023-05-05 12:56] LABS: INR 1.2; Partial Thromboplastin Time 37.1 Seconds (22.3-36.8); Prothrombin Time 15.9 Seconds (11.1-14.7)
[2023-05-05 13:01] LABS: Lactic Acid Reflex 0.9 mmol/L (0.7-2.0)
[2023-05-05 13:11] LABS: Influenza A QL RT-PCR Negative (Negative); Influenza B QL RT-PCR Negative (Negative); RSV RNA, RT-PCR Positive (Negative); SARS-CoV-2 RNA PCR Negative (Negative)
[2023-05-05] MEDS: IPRATROPIUM 0.5 MG/ALBUTEROL SULFATE 2.5 MG AMPUL.NEB 3 ML INHALATION ×2 (14:20→21:20)
--- NOTE | 2023-05-05 14:21 | ED.SOB ---
HPI - SOB/Dyspnea General Chief Complaint: Shortness of Breath/Dyspnea Stated Complaint: dyspnea Time Seen by Provider: 05/05/23 13:50 History of Present Illness HPI Narrative: Pt presents with SOB. Pt says she first developed a cough 6 days ago but seemed to get worse and more SOB two days ago. Pt has low grade temp today. Pt denies CP or leg swelling. Related Data Home Medications Medication Instructions Recorded Confirmed carbidopa 25 mg-levodopa 100 mg 2 tablet PO QID 05/27/21 12/15/22 tablet omeprazole 20 mg capsule,delayed 20 mg PO DAILY 05/28/21 02/26/22 release B12 2,500 mg PO Q48H 02/26/22 12/15/22 calcium 500 mg tablet 500 mg PO DAILY 02/26/22 02/26/22 cholecalciferol (vitamin D3) 25 25 mcg PO DAILY 02/26/22 12/15/22 mcg (1,000 unit) tablet cod liver oil 1 cap PO DAILY 02/26/22 12/15/22 cranberry 400 mg capsule 400 mg PO DAILY 02/26/22 12/15/22 docusate sodium 100 mg capsule 100 mg PO BID 02/26/22 02/26/22 ferrous sulfate 325 mg (65 mg 325 mg PO DAILY 02/26/22 12/15/22 iron) tablet (Iron (ferrous sulfate)) magnesium 100 mg capsule 300 mg PO DAILY 02/26/22 12/15/22 multivit with minerals-iron 18 1 tablet PO DAILY 02/26/22 12/15/22 mg-folic ac 400 mcg-vit K 25 mcg tablet (Adults Multivitamin) Allergies Allergy/AdvReac Type Severity Reaction Status Date / Time codeine Allergy Unknown Unknown Verified 12/15/22 06:51 Review of Systems Review of Systems: All systems reviewed & are unremarkable except as noted in HPI and below PMFSH Past Medical History Medical History (Updated 05/05/23 @ 15:39 by Tena Corrigan III, DO) Arthralgia Chronic anemia Hypertension Parkinson's disease Surgical History Surgical History History of bilateral cataract extraction History of dilation and curettage History of sinus surgery Family History Family History Mother CAD (coronary artery disease) Sibling Diabetes mellitus Social History Social History Social History: Surrogate medical decision maker: Maria G Lima, daughter. Code status: Full code. Smoking status: Never smoker Alcohol intake: never Substance use: never Substance use type: does not use Lack of Transportation: No Lack of Food: Never True Current Housing: I Have Housing Concerned About Future Housing: No Difficulty Paying Gas/Electric Bills: No Difficulty Paying for Meds: No Currently Unemployed: No Education: High School Diploma/GED Difficulty w/ Childcare or Family Care: No Additional living arrangements comments: . She has been in assisted living at [facility] since 2019. Spiritual care concerns: No Exam Const: General: healthy appearing and no acute distress Nutritional Appearance: well nourished Orientation/consciousness: patient oriented x3 Limitations: no limitations Neck: Neck: normal visual inspection and no lymphadenopathy Chest: Chest palpation & inspection: normal inspection of the chest Resp: Effort & Inspection: labored Auscultation: wheezes Cardio: Rate: regular rate Rhythm: regular rhythm GI: GI Palp: Yes Soft to palpation Auscultation: normal bowel sounds Skin: General skin exam: normal color Rashes: no rashes Wounds: no wounds Neuro: General: patient oriented x3, moves all extremities, no meningeal signs, no focal motor deficits and CN's II-XI intact bilaterally Speech: normal speech Extrem: General: normal to inspection, no clubbing, cyanosis or edema and no pedal edema Psych: Mental Status: mental status grossly normal Affect: normal affect Attitude: cooperative Course Vital Signs Vital signs: Vital Signs Temperature 98.6 F 05/05/23 11:43 Pulse Rate 88 05/05/23 11:43 Respiratory Rate 21 H 05/05/23 11:43 Blood Pressure 148/67 H 05/05/23 11:43 Pu
[2023-05-05 14:23] LABS: NT Pro B Type Natriuretic Pept 4540 pg/mL (19.9-100)
[2023-05-05] MEDS: FUROSEMIDE INJ 40 MG/4 ML VIAL IV PUSH (15:23)
[2023-05-05] MEDS: cefTRIAXone 2 GM/NS 100 ML 2 GM/100 ML BAG IVPB (16:06)
[2023-05-05] MEDS: AZITHROMYCIN 500 MG/NS 250 ML 500 MG/250 ML BAG 250 MG IVPB (16:45)
[2023-05-05 16:58] LABS: MRSA (PCR) NOT DETECTED (NOT DETECTE)
--- NOTE | 2023-05-05 19:14 | PC.NURSE ---
BSSR received from [facility] at this time. Pt resting comfortably in bed with call light within reach. Family at bedside.
--- NOTE | 2023-05-05 21:20 | PM.IMHP ---
H&P: HPI History of Present Illness Date/Time: 05/05/23 21:20 Chief Complaint: shortness of breath Narrative: this is an 87-year-old female with past medical history significant for chronic anemia, hypertension, Parkinson's disease. Patient presented to emergency room with complaints of shortness of breath, productive cough present over the last week or so which has worsened. Preliminary workup was significant for patient tested positive for RSV chest x-ray was significant for opacity. Patient has been admitted for further evaluation management and treatment. Portable chest x-ray Comparison: 07/16/2022 Clinical History: Shortness of breath Findings:? Questionable minimal bibasilar haziness. Hazy opacity right suprahilar lesion noted. Cardiomediastinal silhouette is stable. Degenerative change of both shoulders present, left worse than right. ? Impression: ? Questionable minimal bibasilar pulmonary edema. Hazy opacity right suprahilar. This is possibly related to the anterior right first rib, versus possible focal pneumonitis. EXAMINATION: CT diagnostic chest wo con DATE: 05/05/2023 14:56 INDICATION: Shortness of breath, productive cough. Hazy opacity right suprahilar area noted on 05/05/2023 portable chest radiograph TECHNIQUE: Computed tomography (CT) of the chest was performed without intravenous contrast. Automated exposure control and iterative reconstruction technique were employed. Exam dose:? 214.29 mGy-cm total exam DLP.? COMPARISON: 05/05/2023 portable AP chest 07/16/2022 portable AP chest FINDINGS: Heart size is within normal range. Coronary artery calcification. Thoracic aortic and great vessel calcifications. No thoracic aortic aneurysm. No hilar or mediastinal mass lesion or lymphadenopathy is noted. There is prominent patchy infiltrate in the right apical region and anterior segment of the right upper lobe in addition to patchy right lower lobe infiltrate and right basilar lower lobe atelectasis. Minimal infiltrate or atelectasis of the lingula and left lower lobe. Large sliding hiatal hernia containing the majority of the stomach. Multiple gallstones. Hepatic calcified granuloma. Splenic calcified granulomas. Normal morphology of the adrenal glands. Severe degenerative disc disease at C5-6 and C6-7. Moderately prominent anterior wedge compression fracture deformity of T10. Degenerative changes of the thoracic and lumbar spine. IMPRESSION:? Bilateral pulmonary infiltrates, more prominent on the right, suggesting pneumonia Right lower lobe basilar atelectasis Large sliding hiatal hernia Cholelithiasis [facility] Past Medical History Medical History (Updated 05/05/23 @ 15:39 by Tena Corrigan III, DO) Arthralgia Chronic anemia Hypertension Parkinson's disease Surgical History Surgical History History of bilateral cataract extraction History of dilation and curettage History of sinus surgery Family History Family History Mother CAD (coronary artery disease) Sibling Diabetes mellitus Social History Social History Social History: Surrogate medical decision maker: Maria G Lima, daughter. Code status: Full code. Smoking status: Never smoker Alcohol intake: never Substance use: never Substance use type: does not use Do You Feel Safe in your Home?: Yes Lack of Transportation: No Lack of Food: Never True Current Housing: I Have Housing Concerned About Future Housing: No Difficulty Paying Gas/Electric Bills: No Difficulty Paying for Meds: No Currently Unemployed: No Education: High School Diploma/GED Difficulty w/ Childcare or Family Care: No Additional living arrangements comments: . She has been in assisted living at [facility] since 2019. Spiritual care concerns: No Meds
--- NOTE | 2023-05-05 21:26 | ADMGEN ---
This patient, Inge Estevez, was admitted to Medical Room 349-01. Patient/family oriented to hospital policies and general routines including ID bracelet, bed and alarms, visiting hours, pain management, procedures, bathroom and other care routines, personal items, smoking policy, room service/diet, and visiting hours. Information on how to activate the Rapid Response Team has been discussed. Patient/Family are encouraged to report perceived risks to care and to ask questions if they do not understand what they are told or what they should do.
[2023-05-06] VITALS (19 sets, daily range): BP systolic 111–141; BP diastolic 49–61; PULSE 64–84; RESP 16–20; TEMP 36.6–37.2; O2SAT 93–100
[2023-05-06 08:56] LABS: Glucose Point of Care 93 mg/dl (65-105)
--- NOTE | 2023-05-06 09:02 | PM.IMPN ---
Progress Note: A&P Assessment and Plan (1) Respiratory syncytial virus (RSV) infection: Code(s): B33.8 - Other specified viral diseases Status: Acute Assessment and Plan: RSV -vial swab positive -Contact,Droplet isolation (2) Pneumonia: Qualifiers: Pneumonia type: due to unspecified organism Code(s): J18.9 - Pneumonia, unspecified organism Status: Acute Assessment and Plan: Pneumonia -CT with bilateral pulmonary infiltrates, more prominent on the right -Likely related to congestion from RSV infection. -WBC 8.6, Neutrophils 82.4% -Started on Rocephin and Azithromycin -Blood cultures pending -On oxygen 2 L NC, new o2 requirement -Duo nebs scheduled Q 6 hours -Guaifenesin 1200 mg BID to help thin secretions -OOB to chair -IS/PEP therapy Subjective Date/time seen: 05/06/23 09:02 Interval history: HPI obtained from the chart, This is an 87-year-old female with past medical history significant for chronic anemia, hypertension, Parkinson's disease.? Patient presented to emergency room with complaints of shortness of breath, productive cough present over the last week or so which has worsened.? Preliminary workup was significant for patient tested positive for RSV chest x-ray was significant for opacity.? Patient has been admitted for further evaluation management and treatment. Interval History: 05/05: Patient is seen resting in bed on 2 L nasal cannula. She is alert and oriented and able to speak in full sentences. She is notably congested and has a weak cough. She says that she is producing sputum but she is not sure what color it is. Review of Systems Review of Systems: All systems reviewed & are unremarkable except as noted in HPI and below Exam Narrative: General: chronically ill appearing, well developed, well nourished, appears stated age. HEENT: normocephalic, atraumatic. Mucous membranes moist. EOMI, PERRLA, bilateral sclera anicteric, no conjunctival injection. Neck supple without JVD, lymphadenopathy, or bruit. Respiratory: coarse to auscultation bilaterally. No rales/rhonic/wheezes. Cardiovascular: Regular rate and rhythm, normal S1-S2 upon auscultation. No murmurs, rubs, or clicks. PMI is nondisplaced, capillary re-fill less than 3 second. Abdomen: Soft, round, no pulsatile masses, non-distended and non-tender. No rebound, no guarding. No CVA tenderness, no hepatosplenomegaly. Bowel sounds present to all four quadrants. No high pitch or tinkling sounds, resonant to percussion. Extremities: No cyanosis, clubbing, or edema present. Pulses are palpable 2/2. Active ROM to all four extremities. Generally weak. Neuro: Alert and orientated x 4. PERRLA. Cranial nerves 2-12 intact without focal deficit. Skin: Warm, dry, and intact, without rash, erythema, or lesion. Lines: PIV Incisions: N/A Psych: pleasant, cooperative, normal speech, normal affect, no hallucinations, no dysarthria Objective Data Vital Signs Vital Signs: Vital Signs - 24 hr 05/05/23 11:43 05/05/23 11:56 05/05/23 12:08 Temperature 98.6 F Pulse Rate 88 81 Respiratory Rate 21 H Blood Pressure 148/67 H Pulse Oximetry 90 91 Oxygen Delivery Room Air Nasal Cannula Oxygen Flow Rate 2 05/05/23 12:32 05/05/23 13:47 05/05/23 14:21 Temperature 100.5 F H Pulse Rate 76 77 Respiratory Rate 22 H 26 H Blood Pressure 123/40 L Pulse Oximetry 98 Oxygen Delivery Oxygen Flow Rate 05/05/23 14:30 05/05/23 15:23 05/05/23 16:07 Temperature Pulse Rate 77 85 81 Respiratory Rate 27 H 18 18 Blood Pressure 135/48 L 109/60 Pulse Oximetry 100 98 Oxygen Delivery Oxygen Flow Rate 05/05/23 16:46 05/05/23 17:40 05/05/23 18:39 Temperature 97.8 F Pulse Rate 78 87 80 Respiratory Rate 22 H 26 H 27 H Blood Pressure 149/79 H 129/96 H 142/45 H Pulse Oximetry 100 98 99 Oxygen Delivery Oxygen Flow Rate 05/05/23 20:31 05/05/23 20:44 05/04
[2023-05-06] MEDS: DOCUSATE SODIUM 100 MG CAPSULE PO ×2 (09:24→17:09)
[2023-05-06] MEDS: CARBIDOPA/LEVODOPA 25/100 MG TABLET 2 TABLET PO ×5 (09:24→20:27)
[2023-05-06] MEDS: CYANOCOBALAMIN 1,000 MCG TABLET 1000 MCG PO (09:24)
[2023-05-06] MEDS: FERROUS SULFATE 325 MG TABLET DR BY MOUTH (09:24)
[2023-05-06] MEDS: PANTOPRAZOLE 40 MG TABLET PO (09:24)
[2023-05-06] MEDS: MAGNESIUM OXIDE 200 MG TABLET PO (09:24)
[2023-05-06] MEDS: CALCIUM CARBONATE (OSCAL) 500 MG TABLET PO (09:24)
[2023-05-06] MEDS: IPRATROPIUM 0.5 MG/ALBUTEROL SULFATE 2.5 MG AMPUL.NEB 3 ML INHALATION ×3 (10:18→21:55)
--- NOTE | 2023-05-06 10:27 | P.CDI_ITS ---
CDI Query Clarification Request Documentation in the medical record indicates that this patient has been admitted with or diagnosed as having: * RSV (positive swab 05/05/23) * Pneumonia Additional findings also documented in the medical record: Assessment and Plan (1) Respiratory syncytial virus (RSV) infection: ?Code(s): B33.8 - Other specified viral diseases ?Status:?Acute ?Assessment and Plan: Admit to regular medical floor (2) Pneumonia: ?Code(s): J18.9 - Pneumonia, unspecified organism ?Status:?Acute ?Assessment and Plan: Patient started on antibiotics Blood cultures in progress Rocephin and Zithromax Antibiotics: * Azithromycin 500mg Q 24 hours. * Rocephin 1 gm Q 24 hours. RSV has been identified with a positive swab. Based on your medical judgement can you please clarify in the progress notes, if known, the underlying infecti ous process: * Pneumonia * Bronchitis * Upper Respiratory infection * Lower Respiratory infection * Other/ Unknown
[2023-05-06] MEDS: AZITHROMYCIN 500 MG/NS 250 ML 500 MG/250 ML BAG 250 MG IVPB (17:09)
[2023-05-06] MEDS: FLUTICASONE PROPIONATE 0.05% NA SPR 16 GM BTL (*BKC) 1 SPRAY NASAL (20:27)
[2023-05-06] MEDS: guaiFENesin 12 HR 600 MG TABCR 1200 MG PO (20:27)
[2023-05-07] VITALS (16 sets, daily range): BP systolic 124–156; BP diastolic 51–68; PULSE 66–87; RESP 16–20; TEMP 36.5–37.3; O2SAT 96–97
[2023-05-07] MEDS: ACETAMINOPHEN 325 MG TABLET 650 MG PO ×2 (00:42→17:03)
[2023-05-07] MEDS: IPRATROPIUM 0.5 MG/ALBUTEROL SULFATE 2.5 MG AMPUL.NEB 3 ML INHALATION ×4 (02:03→21:21)
[2023-05-07 05:52] LABS: Basophils Percent Auto 0.5 % (0.2-1.2); Eosinophils Absolute Auto 0.1 K/mm3 (0-0.3); Eosinophils Percent Auto 1.4 % (0-4.4); Hematocrit 30.4 % (37.0-47.0); Immature Granulocyte Absolute 0.14 K/mm3 (0.00-0.031); Immature Granulocyte Percent A 1.6 % (0-0.5); Lymphocytes Absolute Auto 0.99 K/mm3 (0.9-3.2); Lymphocytes Percent Auto 11.2 % (18.3-44.2); Mean Corpuscular HGB Conc 32.9 g/dl (32-36); Mean Corpuscular Hemoglobin 29.9 pg (26-34); Mean Platelet Volume 9.8 fl (7.4-10.4); Monocytes Absolute Auto 0.7 K/mm3 (0.1-0.6); Monocytes Percent Auto 7.4 % (2.6-8.5); Neutrophils Absolute Auto 6.9 K/mm3 (1.3-6.7); Neutrophils Percent Auto 77.9 % (45.5-73.1); Platelet Count Result 261 k/mm3 (150-375); Red Blood Count 3.34 M/mm3 (4.2-5.4); Red Cell Distribution Width 13.1 % (11.5-14.5); White Blood Count 8.9 K/mm3 (4.5-10.0)
[2023-05-07 07:00] LABS: Alanine Aminotransferase 7 U/L (6-35); Albumin Level 3.1 g/dL (3.5-5.1); Alkaline Phosphatase 64 U/L (38-126); Anion Gap 5 mmol/L (8-16); Aspartate Amino Transferase 30 U/L (14-36); Bilirubin,Total 0.5 mg/dL (0.2-1.3); Blood Urea Nitrogen 23 mg/dL (7-17); Carbon Dioxide 28 mmol/L (22-30); Chloride 99 mmol/L (98-107); Estimated CRCL calculation 30 ml/min; Estimated Glomerular Filt Rate 53; Glucose 135 mg/dL (65-110); Sodium 132 mmol/L (137-145)
--- NOTE | 2023-05-07 08:02 | PM.IMPN ---
Progress Note: A&P Assessment and Plan (1) Respiratory syncytial virus (RSV) infection: Code(s): B33.8 - Other specified viral diseases Status: Acute Assessment and Plan: RSV -vial swab positive (2) Pneumonia: Qualifiers: Pneumonia type: due to unspecified organism Code(s): J18.9 - Pneumonia, unspecified organism Status: Acute Assessment and Plan: Pneumonia -CT with bilateral pulmonary infiltrates, more prominent on the right -Likely related to congestion from RSV infection. -WBC 8.6, Neutrophils 82.4% -Started on Rocephin and Azithromycin -Blood cultures pending -On oxygen 2 L NC, new o2 requirement -Duo nebs scheduled Q 6 hours -Guaifenesin 1200 mg BID to help thin secretions -OOB to chair -IS/PEP therapy Subjective Date/time seen: 05/07/23 08:02 Interval history: HPI obtained from the chart, This is an 87-year-old female with past medical history significant for chronic anemia, hypertension, Parkinson's disease.? Patient presented to emergency room with complaints of shortness of breath, productive cough present over the last week or so which has worsened.? Preliminary workup was significant for patient tested positive for RSV chest x-ray was significant for opacity.? Patient has been admitted for further evaluation management and treatment. Interval History: 05/05: Patient is seen resting in bed on 2 L nasal cannula. She is alert and oriented and able to speak in full sentences. She is notably congested and has a weak cough. She says that she is producing sputum but she is not sure what color it is. 05/06: Mrs. Estevez is doing better today. She is now on room air. She states that her breathing is improving. She still is quite congested with a poor cough. She is trying to use her PEP and IS. I would like to have her on one more day of IV antibiotics and plan to transition to oral agents tomorrow and discharge back to her facility. She is agreeable. Review of Systems Review of Systems: All systems reviewed & are unremarkable except as noted in HPI and below Exam Narrative: General: chronically ill appearing, well developed, well nourished, appears stated age. HEENT: normocephalic, atraumatic. Mucous membranes moist. EOMI, PERRLA, bilateral sclera anicteric, no conjunctival injection. Neck supple without JVD, lymphadenopathy, or bruit. Respiratory: coarse to auscultation bilaterally. No rales/rhonic/wheezes. Cardiovascular: Regular rate and rhythm, normal S1-S2 upon auscultation. No murmurs, rubs, or clicks. PMI is nondisplaced, capillary re-fill less than 3 second. Abdomen: Soft, round, no pulsatile masses, non-distended and non-tender. No rebound, no guarding. No CVA tenderness, no hepatosplenomegaly. Bowel sounds present to all four quadrants. No high pitch or tinkling sounds, resonant to percussion. Extremities: No cyanosis, clubbing, or edema present. Pulses are palpable 2/2. Active ROM to all four extremities. Generally weak. Neuro: Alert and orientated x 4. PERRLA. Cranial nerves 2-12 intact without focal deficit. Skin: Warm, dry, and intact, without rash, erythema, or lesion. Lines: PIV Incisions: N/A Psych: pleasant, cooperative, normal speech, normal affect, no hallucinations, no dysarthria Objective Data Vital Signs Vital Signs: Vital Signs - 24 hr 05/06/23 09:43 05/06/23 10:16 05/06/23 10:15 Temperature Pulse Rate 71 Respiratory Rate 18 Blood Pressure Pulse Oximetry 97 95 Oxygen Delivery Nasal Cannula Nasal Cannula Oxygen Flow Rate 2 2 05/06/23 10:28 05/06/23 13:40 05/06/23 13:53 Temperature Pulse Rate 83 79 82 Respiratory Rate 18 18 20 Blood Pressure Pulse Oximetry Oxygen Delivery Oxygen Flow Rate 05/06/23 13:58 05/06/23 14:00 05/06/23 12:00 Temperature 98 F Pulse Rate 83 82 Respiratory Rate 18 Blood Pressure 130/50 L Pulse Oximetry 94 100 Oxygen Delivery Nasal Cannula
[2023-05-07 09:40] LABS: Magnesium 2.2 mg/dL (1.6-2.3)
[2023-05-07] MEDS: DOCUSATE SODIUM 100 MG CAPSULE PO ×2 (10:03→16:40)
[2023-05-07] MEDS: PANTOPRAZOLE 40 MG TABLET PO (10:03)
[2023-05-07] MEDS: FERROUS SULFATE 325 MG TABLET DR BY MOUTH (10:03)
[2023-05-07] MEDS: guaiFENesin 12 HR 600 MG TABCR 1200 MG PO ×2 (10:03→20:50)
[2023-05-07] MEDS: FLUTICASONE PROPIONATE 0.05% NA SPR 16 GM BTL (*BKC) 1 SPRAY NASAL ×2 (10:04→20:51)
[2023-05-07] MEDS: MAGNESIUM OXIDE 200 MG TABLET PO (10:04)
[2023-05-07] MEDS: CALCIUM CARBONATE (OSCAL) 500 MG TABLET PO (10:04)
[2023-05-07] MEDS: CARBIDOPA/LEVODOPA 25/100 MG TABLET 2 TABLET PO ×4 (10:09→20:50)
[2023-05-07] MEDS: POTASSIUM CHLORIDE 20 MEQ PACKET (FOR LIQUID) 40 MEQ PO ×2 (10:13→12:45)
[2023-05-07] MEDS: AZITHROMYCIN 500 MG/NS 250 ML 500 MG/250 ML BAG 250 MG IVPB (16:40)
[2023-05-07] MEDS: traMADol HCL (*CRX) 50 MG TABLET PO (20:50)
[2023-05-08] VITALS (16 sets, daily range): BP systolic 100–153; BP diastolic 64–67; PULSE 69–93; RESP 16–20; TEMP 36.1–36.8; O2SAT 94–98
[2023-05-08] MEDS: ACETAMINOPHEN 325 MG TABLET 650 MG PO (01:18)
[2023-05-08] MEDS: IPRATROPIUM 0.5 MG/ALBUTEROL SULFATE 2.5 MG AMPUL.NEB 3 ML INHALATION ×4 (03:01→20:06)
[2023-05-08 06:06] LABS: Basophils Percent Auto 0.4 % (0.2-1.2); Eosinophils Absolute Auto 0.2 K/mm3 (0-0.3); Eosinophils Percent Auto 3.2 % (0-4.4); Hematocrit 30.3 % (37.0-47.0); Immature Granulocyte Absolute 0.22 K/mm3 (0.00-0.031); Lymphocytes Absolute Auto 1.01 K/mm3 (0.9-3.2); Mean Corpuscular Hemoglobin 30.3 pg (26-34); Mean Corpuscular Volume 91.8 fl (80-100); Mean Platelet Volume 9.9 fl (7.4-10.4); Monocytes Absolute Auto 0.5 K/mm3 (0.1-0.6); Monocytes Percent Auto 7.2 % (2.6-8.5); Neutrophils Absolute Auto 5.2 K/mm3 (1.3-6.7); Neutrophils Percent Auto 72.2 % (45.5-73.1); Platelet Count Result 321 k/mm3 (150-375); Red Cell Distribution Width 13.4 % (11.5-14.5); White Blood Count 7.2 K/mm3 (4.5-10.0)
[2023-05-08 06:16] LABS: Alanine Aminotransferase 6 U/L (6-35); Alkaline Phosphatase 66 U/L (38-126); Anion Gap 2 mmol/L (8-16); Aspartate Amino Transferase 25 U/L (14-36); Bilirubin,Total 0.4 mg/dL (0.2-1.3); Blood Urea Nitrogen 22 mg/dL (7-17); Calcium 8.1 mg/dL (8.4-10.2); Carbon Dioxide 29 mmol/L (22-30); Chloride 104 mmol/L (98-107); Estimated CRCL calculation 33 ml/min; Estimated Glomerular Filt Rate 59; Glucose 118 mg/dL (65-110); Magnesium 2.3 mg/dL (1.6-2.3); Potassium 4.2 mmol/L (3.4-5.0); Sodium 135 mmol/L (137-145)
[2023-05-08] MEDS: PANTOPRAZOLE 40 MG TABLET PO (08:28)
[2023-05-08] MEDS: MAGNESIUM OXIDE 200 MG TABLET PO (08:28)
[2023-05-08] MEDS: CALCIUM CARBONATE (OSCAL) 500 MG TABLET PO (08:28)
[2023-05-08] MEDS: AMOXICILLIN/CLAVULANATE K 500-125 MG TAB 1 TABLET PO ×2 (08:28→20:55)
[2023-05-08] MEDS: DOCUSATE SODIUM 100 MG CAPSULE PO ×2 (08:28→17:45)
[2023-05-08] MEDS: FERROUS SULFATE 325 MG TABLET DR BY MOUTH (08:28)
[2023-05-08] MEDS: CYANOCOBALAMIN 1,000 MCG TABLET 1000 MCG PO (08:29)
[2023-05-08] MEDS: guaiFENesin 12 HR 600 MG TABCR 1200 MG PO ×2 (08:29→20:53)
[2023-05-08] MEDS: CARBIDOPA/LEVODOPA 25/100 MG TABLET 2 TABLET PO ×5 (08:29→20:53)
[2023-05-08] MEDS: AZITHROMYCIN 250 MG TABLET 500 MG PO (08:29)
[2023-05-08] MEDS: FLUTICASONE PROPIONATE 0.05% NA SPR 16 GM BTL (*BKC) 1 SPRAY NASAL ×2 (08:30→20:55)
[2023-05-08] MEDS: LIDOCAINE 5% PATCH 1 PATCH TRANSDERM (08:31)
--- NOTE | 2023-05-08 14:53 | PM.IMPN ---
Progress Note: A&P Assessment and Plan (1) Respiratory syncytial virus (RSV) infection: Code(s): B33.8 - Other specified viral diseases Status: Acute Assessment and Plan: RSV -vial swab positive (2) Pneumonia: Qualifiers: Pneumonia type: due to unspecified organism Code(s): J18.9 - Pneumonia, unspecified organism Status: Acute Assessment and Plan: Pneumonia -CT with bilateral pulmonary infiltrates, more prominent on the right -Likely related to congestion from RSV infection. -WBC 8.6, Neutrophils 82.4% -Started on Rocephin and Azithromycin -Blood cultures pending -On oxygen 2 L NC, new o2 requirement -Duo nebs scheduled Q 6 hours -Guaifenesin 1200 mg BID to help thin secretions -OOB to chair -IS/PEP therapy 05/07: WBC 7.2, neutrophils 72%. Afebrile. Doing well on oral antibiotics. Continue IS/PEP. Subjective Date/time seen: 05/08/23 14:53 Interval history: HPI obtained from the chart, This is an 87-year-old female with past medical history significant for chronic anemia, hypertension, Parkinson's disease.? Patient presented to emergency room with complaints of shortness of breath, productive cough present over the last week or so which has worsened.? Preliminary workup was significant for patient tested positive for RSV chest x-ray was significant for opacity.? Patient has been admitted for further evaluation management and treatment. Interval History: 05/05: Patient is seen resting in bed on 2 L nasal cannula. She is alert and oriented and able to speak in full sentences. She is notably congested and has a weak cough. She says that she is producing sputum but she is not sure what color it is. 05/06: Mrs. Estevez is doing better today. She is now on room air. She states that her breathing is improving. She still is quite congested with a poor cough. She is trying to use her PEP and IS. I would like to have her on one more day of IV antibiotics and plan to transition to oral agents tomorrow and discharge back to her facility. She is agreeable. 05/07: Continues to improve. She is tolerating PO intake. Unfortunately, I did not realize she had a Dick. Will start void trial now @ 1456. Plan to discharge tomorrow morning. She also is having some gas pain. Will give simethicone now. Review of Systems Review of Systems: All systems reviewed & are unremarkable except as noted in HPI and below Exam Narrative: General: chronically ill appearing, well developed, well nourished, appears stated age. HEENT: normocephalic, atraumatic. Mucous membranes moist. EOMI, PERRLA, bilateral sclera anicteric, no conjunctival injection. Neck supple without JVD, lymphadenopathy, or bruit. Respiratory: coarse to auscultation bilaterally. No rales/rhonic/wheezes. Cardiovascular: Regular rate and rhythm, normal S1-S2 upon auscultation. No murmurs, rubs, or clicks. PMI is nondisplaced, capillary re-fill less than 3 second. Abdomen: Soft, round, no pulsatile masses, non-distended and non-tender. No rebound, no guarding. No CVA tenderness, no hepatosplenomegaly. Bowel sounds present to all four quadrants. No high pitch or tinkling sounds, resonant to percussion. Extremities: No cyanosis, clubbing, or edema present. Pulses are palpable 2/2. Active ROM to all four extremities. Generally weak. Neuro: Alert and orientated x 4. PERRLA. Cranial nerves 2-12 intact without focal deficit. Skin: Warm, dry, and intact, without rash, erythema, or lesion. Lines: PIV Incisions: N/A Psych: pleasant, cooperative, normal speech, normal affect, no hallucinations, no dysarthria Objective Data Vital Signs Vital Signs: Vital Signs - 24 hr 05/07/23 16:00 05/07/23 21:21 05/07/23 21:21 Temperature Pulse Rate 83 81 81 Respiratory Rate 18 18 Blood Pressure Pulse Oximetry 96 Oxygen Delivery Room Air 05/07/23 21:31 05/07/23 20:00 05/07/23 20:00 Temperature Pulse Rate 76 81 Res
[2023-05-08] MEDS: SIMETHICONE 80 MG TAB.CHEW PO ×2 (17:59→20:55)
[2023-05-08] MEDS: traMADol HCL (*CRX) 50 MG TABLET PO (20:54)
[2023-05-09] MEDS: ACETAMINOPHEN 325 MG TABLET 650 MG PO (00:16)
[2023-05-09 02:59] VITALS: PULSE 70; RESP 18
[2023-05-09] MEDS: IPRATROPIUM 0.5 MG/ALBUTEROL SULFATE 2.5 MG AMPUL.NEB 3 ML INHALATION ×3 (02:59→12:25)
[2023-05-09 03:11] VITALS: PULSE 73; RESP 18
[2023-05-09 06:00] VITALS: BP 146/88; PULSE 88; RESP 18; TEMP 36.2; O2SAT 97
[2023-05-09 06:41] LABS: Magnesium 2.2 mg/dL (1.6-2.3)
[2023-05-09 07:30] VITALS: PULSE 78; RESP 16
[2023-05-09 07:34] VITALS: O2SAT 95
--- NOTE | 2023-05-09 07:45 | PM.DS ---
DS: Admitting Diagnosis Discharge Date 05/09/23 Admitting Diagnosis RSV, SOB DS: Discharge Diagnosis Discharge Diagnosis (1) Respiratory syncytial virus (RSV) infection: Code(s): B33.8 - Other specified viral diseases Status: Acute Assessment and Plan: RSV -vial swab positive (2) Pneumonia: Qualifiers: Pneumonia type: due to unspecified organism Code(s): J18.9 - Pneumonia, unspecified organism Status: Acute Assessment and Plan: Pneumonia -CT with bilateral pulmonary infiltrates, more prominent on the right -Likely related to congestion from RSV infection. -WBC 8.6, Neutrophils 82.4% -Started on Rocephin and Azithromycin -Blood cultures pending -On oxygen 2 L NC, new o2 requirement -Duo nebs scheduled Q 6 hours -Guaifenesin 1200 mg BID to help thin secretions -OOB to chair -IS/PEP therapy 05/07: WBC 7.2, neutrophils 72%. Afebrile. Doing well on oral antibiotics. Continue IS/PEP. DS: Summary Hospital Course Reason for hospitalization: RSV with superimposed pneumonia Hospital Course: This is an 87-year-old female with past medical history significant for chronic anemia, hypertension, Parkinson's disease.? Patient presented to emergency room with complaints of shortness of breath, productive cough present over the last week or so which has worsened.? Preliminary workup was significant for patient tested positive for RSV chest x-ray was significant for opacity.? Patient has been admitted for further evaluation management and treatment. Interval History: 05/05:? Patient is seen resting in bed on 2 L nasal cannula.? She is alert and oriented and able to speak in full sentences.? She is notably congested and has a weak cough.? She says that she is producing sputum but she is not sure what color it is. 05/06: Mrs. Estevez is doing better today. She is now on room air. She states that her breathing is improving. She still is quite congested with a poor cough. She is trying to use her PEP and IS. I would like to have her on one more day of IV antibiotics and plan to transition to oral agents tomorrow and discharge back to her facility. She is agreeable. 05/07: Continues to improve. She is tolerating PO intake. Unfortunately, I did not realize she had a Dick. Will start void trial now @ 1456. Plan to discharge tomorrow morning. She also is having some gas pain. Will give simethicone now. 05/08: Voiding spontaneously after Dick removal. No acute events overnight. She can discharge back to her facility today. Labs and vitals reviewed and are stable. Status at Discharge Cognitive/behavioral status at discharge: A&O x4, pleasant Time Spent with Patient Time attestation: Total time spent providing and/or coordinating discharge services:36 Exam Narrative: General: chronically ill appearing, well developed, well nourished, appears stated age. HEENT: normocephalic, atraumatic. Mucous membranes moist. EOMI, PERRLA, bilateral sclera anicteric, no conjunctival injection. Neck supple without JVD, lymphadenopathy, or bruit. Respiratory: coarse to auscultation bilaterally. No rales/rhonic/wheezes. Cardiovascular: Regular rate and rhythm, normal S1-S2 upon auscultation. No murmurs, rubs, or clicks. PMI is nondisplaced, capillary re-fill less than 3 second. Abdomen: Soft, round, no pulsatile masses, non-distended and non-tender. No rebound, no guarding. No CVA tenderness, no hepatosplenomegaly. Bowel sounds present to all four quadrants. No high pitch or tinkling sounds, resonant to percussion. Extremities: No cyanosis, clubbing, or edema present. Pulses are palpable 2/2. Active ROM to all four extremities. Generally weak. Neuro: Alert and orientated x 4. PERRLA. Cranial nerves 2-12 intact without focal deficit. Skin: Warm, dry, and intact, without rash, erythema, or lesion. Lines: PIV Incisions: N/A Psych: pleasant, cooperative, normal speech, normal affect, no hallucinations, no dysarthr
[2023-05-09] MEDS: DOCUSATE SODIUM 100 MG CAPSULE PO (09:49)
[2023-05-09] MEDS: AZITHROMYCIN 250 MG TABLET 500 MG PO (09:49)
[2023-05-09] MEDS: AMOXICILLIN/CLAVULANATE K 500-125 MG TAB 1 TABLET PO (09:49)
[2023-05-09] MEDS: MAGNESIUM OXIDE 200 MG TABLET PO (09:49)
[2023-05-09] MEDS: SIMETHICONE 80 MG TAB.CHEW PO ×2 (09:49→12:52)
[2023-05-09] MEDS: CALCIUM CARBONATE (OSCAL) 500 MG TABLET PO (09:49)
[2023-05-09] MEDS: FERROUS SULFATE 325 MG TABLET DR BY MOUTH (09:49)
[2023-05-09] MEDS: guaiFENesin 12 HR 600 MG TABCR 1200 MG PO (09:49)
[2023-05-09] MEDS: PANTOPRAZOLE 40 MG TABLET PO (09:49)
[2023-05-09] MEDS: FLUTICASONE PROPIONATE 0.05% NA SPR 16 GM BTL (*BKC) 1 SPRAY NASAL (09:50)
[2023-05-09] MEDS: CARBIDOPA/LEVODOPA 25/100 MG TABLET 2 TABLET PO ×2 (09:55→12:52)
[2023-05-09 12:25] VITALS: PULSE 71; RESP 16
[2023-05-09 13:45] LABS: SARS-CoV-2 RNA PCR Negative (Negative)
== END 2023-05-09 14:45 | DRG 195 ==
LOC: ANHED 14:26 → ANH3MED 20:31
PROVIDERS: Emergency Medicine; Student in an Organized Health Care Education/Training Program; Admitting Provider Internal Medicine; Emergency Provider Emergency Medicine; Visit Provider Nurse Practitioner Acute Care
DX: J12.1 Respiratory syncytial virus pneumonia (principal); I10 Essential (primary) hypertension; G20.A1 Parkinson's disease without dyskinesia, without mention of fluctuations; K21.9 Gastro-esophageal reflux disease without esophagitis; R53.1 Weakness
CPT/HCPCS: 36415; 71045; 71250; 80053; 82948; 83605; 83735; 83880; 85025; 85610; 85730; 87040; 87635; 87637; 87641; 93005; 94640; 94667; 96374; 97161; 97166; 99285; A9270; J0456; J0696; J1940